=== PATIENT | female | born 1965 | race Asian ===

== ENCOUNTER → 2021-02-27 14:49 | Outpatient (BNVA) | payer BC, OTHER, SELFPAY | PROVIDERS: Visit Provider Nurse Practitioner Family ==

== ENCOUNTER → 2021-06-12 13:53 | Outpatient (BNVA) | payer BC, OTHER, SELFPAY | PROVIDERS: Visit Provider Nurse Practitioner Family | DX: Z13.89 Encounter for screening for other disorder (principal) ==

== ENCOUNTER → 2022-03-05 13:56 | Outpatient (BNVA) | payer BC, OTHER, SELFPAY | PROVIDERS: Visit Provider Nurse Practitioner Family | DX: Z13.89 Encounter for screening for other disorder (principal) ==

== ENCOUNTER → 2022-04-24 15:26 | Outpatient (BNVA) | payer BC, SELFPAY | PROVIDERS: Visit Provider Nurse Practitioner Family | DX: Z13.89 Encounter for screening for other disorder (principal) ==

== ENCOUNTER → 2022-08-21 09:33 | Outpatient (BNVA) | payer BC, SELFPAY | PROVIDERS: Visit Provider Nurse Practitioner Family ==

== ENCOUNTER 2022-09-10 11:35 | Outpatient (AMB) | payer BC, SELFPAY ==
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
== END 2022-09-10 12:28 | disposition home or self-care (01) ==
PROVIDERS: Visit Provider Nurse Practitioner Family
DX: R68.89 Other general symptoms and signs (principal); F32.A Depression, unspecified; G43.009 Migraine without aura, not intractable, without status migrainosus; F07.81 Postconcussional syndrome; R40.0 Somnolence
CPT/HCPCS: 99214

== ENCOUNTER → 2022-09-10 11:35 | Outpatient (BNVA) | payer BC, SELFPAY | PROVIDERS: Visit Provider Nurse Practitioner Family | DX: R41.89 Other symptoms and signs involving cognitive functions and awareness (principal); R40.0 Somnolence; R68.89 Other general symptoms and signs; G47.19 Other hypersomnia ==

== ENCOUNTER → 2022-11-23 13:13 | Outpatient (REF) | payer BC, SELFPAY | LOC: HO.SL 13:13 | PROVIDERS: Visit Provider Nurse Practitioner Family | DX: R41.89 Other symptoms and signs involving cognitive functions and awareness (principal); G47.19 Other hypersomnia; R40.0 Somnolence; R68.89 Other general symptoms and signs; R06.83 Snoring | CPT/HCPCS: 95806 ==

== ENCOUNTER → 2022-11-23 13:38 | Outpatient (BNV) | payer BC, SELFPAY | PROVIDERS: Visit Provider Psychiatry & Neurology Neurology | DX: R06.83 Snoring (principal) | CPT/HCPCS: 95806 ==

== ENCOUNTER 2023-02-12 14:12 | Outpatient (AMB) | payer MEDICARE, BC, SELFPAY ==
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
[2023-02-12 14:22] VITALS: BP 110/76; PULSE 76; RESP 16; O2SAT 95; BMI 26.7
== END 2023-02-12 14:52 | disposition home or self-care (01) ==
LOC: HO.HSMS 14:12
PROVIDERS: Visit Provider Nurse Practitioner Family
DX: R68.89 Other general symptoms and signs (principal); F32.A Depression, unspecified; G43.009 Migraine without aura, not intractable, without status migrainosus; F07.81 Postconcussional syndrome; R40.0 Somnolence
CPT/HCPCS: 99214

== ENCOUNTER → 2023-02-12 14:12 | Outpatient (BNVA) | payer BC, SELFPAY | PROVIDERS: Visit Provider Nurse Practitioner Family | DX: R41.89 Other symptoms and signs involving cognitive functions and awareness (principal); R40.0 Somnolence; R68.89 Other general symptoms and signs; G47.19 Other hypersomnia ==

== ENCOUNTER 2023-07-26 16:01 | Outpatient (AMB) | payer MEDICARE, BC, SELFPAY ==
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
== END 2023-07-28 13:58 | disposition home or self-care (01) ==
LOC: HO.HSMS 16:01
PROVIDERS: Visit Provider Nurse Practitioner Family
DX: F39 Unspecified mood [affective] disorder (principal); F07.81 Postconcussional syndrome; G44.309 Post-traumatic headache, unspecified, not intractable; R41.89 Other symptoms and signs involving cognitive functions and awareness; G47.19 Other hypersomnia
CPT/HCPCS: 99214

== ENCOUNTER → 2023-07-26 16:01 | Outpatient (BNVA) | payer MEDICARE, BC, SELFPAY | PROVIDERS: Visit Provider Nurse Practitioner Family ==

== ENCOUNTER 2024-02-08 14:07 | Outpatient (AMB) | payer MEDICARE, BC, SELFPAY ==
[2024-02-08 14:49] VITALS: BP 104/70; PULSE 94; O2SAT 96; BMI 24.1
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
== END 2024-02-08 15:32 | disposition home or self-care (01) ==
PROVIDERS: Visit Provider Nurse Practitioner Family
DX: F39 Unspecified mood [affective] disorder (principal); F07.81 Postconcussional syndrome; G44.309 Post-traumatic headache, unspecified, not intractable; G47.19 Other hypersomnia; R41.89 Other symptoms and signs involving cognitive functions and awareness
CPT/HCPCS: 99214

== ENCOUNTER → 2024-02-08 14:07 | Outpatient (BNVA) | payer MEDICARE, BC, SELFPAY | PROVIDERS: Visit Provider Nurse Practitioner Family | DX: F07.81 Postconcussional syndrome (principal); R41.89 Other symptoms and signs involving cognitive functions and awareness; F39 Unspecified mood [affective] disorder; G47.19 Other hypersomnia; G43.009 Migraine without aura, not intractable, without status migrainosus | CPT/HCPCS: 99212 ==

== ENCOUNTER 2024-08-09 14:28 | Outpatient (AMB) | payer MEDICARE, BC, SELFPAY ==
[2024-08-09 14:31] VITALS: BP 96/70; PULSE 73; O2SAT 97; BMI 25.4
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
--- OUTSIDE RECORDS SUMMARY | 2024-08-09 16:39 | XMS_ITS | Data Portability ---
Author Organization [place] - Judah mcgrath MD PA, [employer] Address [address] [place] [address] Care Team Providers Care Contractor Field Hauling Name Role Phone [facility] Ophthalmologis t ENRIQUETA RAI Analyst [employer] KIERRA FERRARO Neurologist NICOLAS MALDONADO Pipe Processor Assessment Encounter Date Assessment Date Assessment LastModified by Organization Details LastModified Time 04/12/2023 04/12/2023 Exam is unremarkable. Vitals are stable. - Counseled to reach and stay at a healthy weight by limiting dietary intake of fat (especially saturated fat) and cholesterol (limit fat intake to 30% of total calories), eating a variety of foods, including plenty of fruits, vegetables, and grain containing fiber, and balancing caloric intake with energy expended. These will lower risk for many problems, such as obesity, diabetes, heart disease, and high blood pressure. To get at least 30 minutes of exercise on most days of the week. -Counseled to perform a breast self-exam monthly. If there are changes such as any inconsistency from month to month, especially noting knots or lumps, changes in skin appearance, nipple retraction or discharge, advised to our call office immediately. -Counseled to check all the skin once a month for skin growths or other changes, such as a change in the size, shape or color of a mole or other skin growth such as a birthmark. Advised to look for a mole that bleeds, a fast-growing mole, a scaly or crusted growth on the skin or a sore that will not heal. To always wear sunscreen on exposed skin. If any concerns or change, advised to call our office immediately. -Refer to Dermatology for skin cancer screening -Refer to Ophthalmology for eye conditions screening -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 [employer]st [employer] in [facility]. for pelvic and clinical breast examinations and screening pap smear test. Pap was completed in Feb of this year and normal. -Was seen by 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 Installer for screening colonoscopy in 2015, all was clean. - Order fecal occult blood test- to be collected at home. -Mammogram done Nov of last year, all normal as well. Bone density is due this year in [facility]. she reports. Labs reviewed: TC *221, HDL 64, Trigs 96, LDL *137. Glu *100,BUN 18, CR 0.74, K 4.5, Na 140, SONAL 9.3, AST 22, ALT 23. HbA1c 5.4, TSH 1.70. WBC 3.9, HGB 13.9, HCT 41.9, Plt 349. UA showed 1+ leukocyte esterase, 10-20 squamous epithelial cells and few bacteria. Appears to have been contaminated. SHe has no urinary symptoms. LDL is up because she is eating a lot she reports. Will get back to diet and exercise. She gets Eczema from time to time on hands. Will offer Triamcinolone cream Will offer new steroid/albuterol rescue inhaler for her asthma. (AIRSUPRA) [email or web address] Not available 04/12/2023 12:16:36 07/26/2024 07/26/2024 Exam is unremarkable. Vitals are stable. - Counseled to reach and stay at a healthy weight by limiting dietary intake of fat (especially saturated fat) and cholesterol (limit fat intake to 30% of total calories), eating a variety of foods, including plenty of fruits, vegetables, and grain containing fiber, and balancing caloric intake with energy expended. These will lower risk for many problems, such as obesity, diabetes, heart disease, and high blood pressure. To get at least 30 minutes of exercise on most days of the week. -Counseled to perform a breast self-exam monthly. If there are changes such as any inconsistency from month to month, especially noting knots or lumps, changes in skin appearance, nipple retraction or discharge, advised to our call office immediately. -Counseled to check all the skin once a month for skin growths or other changes, such as a change in the size, shape or color of a mole or other skin growth such as a birthmark. Advised to look for a mole that bleeds, a fast-growing mole, a scaly or crusted growth on the skin or a sore that will not heal. To always wear sunscreen on exposed skin. If any concerns or change, advised to call our office immediately. -REFER TO Dermatology for skin cancer screening. -FOLLOWS WITH Ophthalmology for eye conditions screening. She reports following with [facility]. -FOLLOWS WITH [employer] for pelvic and clinical breast examinations and screening pap smear test. She reports following with Dr. RAI. Pap was done in Feb she reports and normal. -Goes back TO 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 Installer for screening colonoscopy neck year. -Mammogram completed in Feb all was normal. Bone density due next year in Feb. Labs reviewed: TC 222* FROM 221, HDL 63, Trigs 120, LDL 136* FROM 137 ALT 45* FROM 23, OTHERWISE CMP WNL WBC 3.5* FROM 3.9, OTHERWISE CBC WNL Vitamin B12 394, Vit D 32 APOLIPO B 99* LIPOPROTEIN (A) 11 UA showed CLOUDY, FEW BACTERIA. CARDIAC IQ PENDING ALT just a bit high. She recently started having some red wine with dinner. WIll monitor closely. If any higher then will obtain US of liver. Diet and exercise discussed in length. Repeat labs in 6months. [email or web address] Not available 07/26/2024 14:11:43 Plan of Treatment Reminders Order Date Submit Date Provider Last Modified By Organization Details Last Modified Time Details Appointments None recorded . Lab fecal occult blood, stool 2023 024 [facility], [address], [address], [place], [address], 4 12:17:55 Referral dermatol ogist referral 2024 025 nadia Jaquez MD, [address], [address], [place], [address], 5 13:30:36 ophthalm ologist referral 2023 024 [email or web address] Nitin Martinez MD, [address], [address], [place], [address], 4 12:16:50 dermatol ogist referral 2023 024 [facility], [address], [address], [place], [address], 4 05:01:55 Procedures None recorded . Surgeries None recorded . Imaging None recorded . Medication Orders Airsupra 90 mcg-80 mcg/actu ation HFA aerosol inhaler 2023 024 [id number], [address] [place], [address], 5 14:10:06 triamcin olone acetonid e 0.1 % topical cream 2023 024 [id number], [address] [place], [address], 5 14:10:00 Patient TargetsNo targets recorded. Patient InstructionsNo instructions recorded. Reason for Referral Pipe Processor Referral for S creening for malignant neoplasm of skin Referring Physician: Judah Acuna, Internal Medicine, Encounter Date: 11/11/2021 Pipe Processor Referral for S creening for malignant neoplasm of skin Referring Physician: Judah Acuna, Internal Medicine, Encounter Date: 04/12/2023 Gasket Supervisor Referral for Eye disorder screening Referring Physician: Judah Acuna, Internal Medicine, Encounter Date: 04/12/2023 Pipe Processor Referral for E ruption Referring Physician: Judah Acuna, Internal Medicine, Encounter Date: 07/26/2024 Results Created Date Observation Date Name Description Value Unit Range Abnormal Flag Note LastModifiedBy Organization Detail LastModifiedTime 12/23/19 22 12/23/2021 LIPID PANEL WITH REFLE X TO DIREC T LDL cholesterol, total 161 mg/dL <200 normal Not Available [facility] [place] [facility] [address], [place], [address], 12/23/2021 00:25:42 12/23/19 22 12/23/2021 LIPID PANEL WITH REFLE X TO DIREC T LDL HDL cholesterol 52 mg/dL > or = 50 normal Not Available [facility] [place] [facility] [address], [place], [address], 12/23/2021 00:25:42 12/23/19 22 12/23/2021 LIPID PANEL WITH REFLE X TO DIREC T LDL triglyceride s 61 mg/dL <150 normal Not Available [facility] [place] [facility] [address], [place], [address], 12/23/2021 00:25:42 12/23/19 22 12/23/2021 LIPID PANEL WITH REFLE X TO DIREC T LDL LDL-choleste rol 94 mg/dL _(sonal c) normal Refer ence range : <100 Sukhwinder able range <100 mg/dL for prima ry preve ntion ; <70 mg/dL for patie nts with CHD or diabe tic patie nts with > or = 2 CHD risk facto rs. LDL-C is now calcu lated using the Bita n-Hop kins calcu latio n, which is a valid ated novel metho d provi ding joanne r accur acy than the Fried kendal equat ion in the estim ation of LDL-C . Bita reed SS et al. CONNIE. 2013; 310(1 9): 2061- 2068 (http ://ed ucati on.Qu Kaylyn hernandezos tics. com/f aq/FA Q164) Not Available [facility] [place] [facility] [address], [place], [address], 12/23/2021 00:25:42 12/23/19 22 12/23/2021 LIPID PANEL WITH REFLE X TO DIREC T LDL chol/HDLC ratio 3.1 (calc ) <5.0 normal Not Available [facility] [place] [facility] [address], [place], [address], 12/23/2021 00:25:42 12/23/19 22 12/23/2021 LIPID PANEL WITH REFLE X TO DIREC T LDL non HDL cholesterol 109 mg/dL _(sonal c) <130 normal For patie nts with diabe dolores plus 1 major ASCVD risk facto r, treat ing to a non-H DL-C goal of <100 mg/dL (LDL- C of <70 mg/dL ) is consi dered a thera peuti c optio n. Not Available [facility] [address], [place], [address], 12/23/2021 00:25:42 12/23/19 22 12/23/2021 COMPR EHENS KRISHNA METAB OLIC PANEL glucose 102 mg/dL 65-99 high Fasti ng refer ence inter fabiano For someo ne witho ut known diabe dolores, a gluco se value betwe en 100 and 125 mg/dL is consi stent with predi abete s and shoul d be confi rmed with a follo w-up test. Not Available [facility] [address], [place], [address], 12/23/2021 00:25:42 12/23/19 22 12/23/2021 COMPR EHENS KRISHNA METAB OLIC PANEL urea nitrogen (BUN) 15 mg/dL 7-25 normal Not Available [facility] [address], [place], [address], 12/23/2021 00:25:42 12/23/19 22 12/23/2021 COMPR EHENS KRISHNA METAB OLIC PANEL creatinine 0.84 mg/dL 0.50-1 .03 normal Not Available [facility] [address], [place], [address], 12/23/2021 00:25:42 12/23/19 22 12/23/2021 COMPR EHENS KRISHNA METAB OLIC PANEL eGFR 82 mL/mi n/1.7 3m2 > or = 60 normal The eGFR is based on the CKD-E PI 2020 equat ion. To calcu late the new eGFR from a previ ous Creat inine or Cysta juan C resul t, go to https ://allison dwyer.yue rich/wojciech burns s/ kdoqi /gfr% 5Fcal culat or Not Available [facility] [place] [facility] [address], [place], [address], 12/23/2021 00:25:42 12/23/19 22 12/23/2021 COMPR EHENS KRISHNA METAB OLIC PANEL BUN/creatini ne ratio NOT APPLIC ABLE (calc ) 6-22 Not Available [facility] [address], [place], [address], 12/23/2021 00:25:42 12/23/19 22 12/23/2021 COMPR EHENS KRISHNA METAB OLIC PANEL sodium 139 mmol/ L 135-14 6 normal Not Available [facility] [address], [place], [address], 12/23/2021 00:25:42 12/23/19 22 12/23/2021 COMPR EHENS KRISHNA METAB OLIC PANEL potassium 4.5 mmol/ L 3.5-5. 3 normal Not Available [facility] [address], [place], [address], 12/23/2021 00:25:42 12/23/19 22 12/23/2021 COMPR EHENS KRISHNA METAB OLIC PANEL chloride 106 mmol/ L 98-110 normal Not Available [facility] [address], [place], [address], 12/23/2021 00:25:42 12/23/19 22 12/23/2021 COMPR EHENS KRISHNA METAB OLIC PANEL carbon dioxide 26 mmol/ L 20-32 normal Not Available [facility] [address], [place], [address], 12/23/2021 00:25:42 12/23/19 22 12/23/2021 COMPR EHENS KRISHNA METAB OLIC PANEL calcium 9.1 mg/dL 8.6-10 .4 normal Not Available [facility] [address], [place], [address], 12/23/2021 00:25:42 12/23/19 22 12/23/2021 COMPR EHENS KRISHNA METAB OLIC PANEL protein, total 6.6 g/dL 6.1-8. 1 normal Not Available [facility] [address], [place], [address], 12/23/2021 00:25:42 12/23/19 22 12/23/2021 COMPR EHENS KRISHNA METAB OLIC PANEL albumin 4.0 g/dL 3.6-5. 1 normal Not Available [facility] [address], [place], [address], 12/23/2021 00:25:42 12/23/19 22 12/23/2021 COMPR EHENS KRISHNA METAB OLIC PANEL globulin 2.6 g/dL_ (calc ) 1.9-3. 7 normal Not Available [facility] [address], [place], [address], 12/23/2021 00:25:42 12/23/19 22 12/23/2021 COMPR EHENS KRISHNA METAB OLIC PANEL albumin/glob ulin ratio 1.5 (calc ) 1.0-2. 5 normal Not Available [facility] [address], [place], [address], 12/23/2021 00:25:42 12/23/19 22 12/23/2021 COMPR EHENS KRISHNA METAB OLIC PANEL bilirubin, total 0.4 mg/dL 0.2-1. 2 normal Not Available [facility] [address], [place], [address], 12/23/2021 00:25:42 12/23/19 22 12/23/2021 COMPR EHENS KRISHNA METAB OLIC PANEL alkaline phosphatase 47 U/L 37-153 normal Not Available [facility] [place] [facility] [address], [place], [address], 12/23/2021 00:25:42 12/23/19 22 12/23/2021 COMPR EHENS KRISHNA METAB OLIC PANEL AST 16 U/L 10-35 normal Not Available [facility] [place] [facility] [address], [place], [address], 12/23/2021 00:25:42 12/23/19 22 12/23/2021 COMPR EHENS KRISHNA METAB OLIC PANEL ALT 10 U/L 6-29 normal Not Available [facility] [place] [facility] [address], [place], [address], 12/23/2021 00:25:42 12/23/19 22 12/23/2021 HEMOG LOBIN A1C hemoglobin A1C 5.1 %_of_ total _HGB <5.7 normal For the purpo se of abraham marilin for the prese nce of diabe dolores: <5.7% Consi stent with the absen ce of diabe dolores 5.7-6 .4% Consi stent with incre ased risk for diabe dolores (pred iabet es) > or =6.5% Consi stent with diabe dolores This assay resul t is consi stent with a decre ased risk of diabe dolores. Curre ntly, no conse nsus exist s regjavi fitzgerald use of hemog lobin A1c for diagn osis of diabe dolores in child carmelita. Accor ding to Ameri can Diabe dolores Assoc iatio n (ADA) guide lines , hemog lobin A1c <7.0% repre sents optim al contr ol in non-p regna nt diabe tic patie nts. Diffe rent metri cs may apply to speci fic patie nt popul ation s. Stand ards of Medic al Care in Diabe dolores(A DA). Not Available [facility] [place] [facility] [address], [place], [address], 12/23/2021 02:05:14 12/23/1912/23/2021 TSH W/REF JOSÉ [address] TO FT4 TSH w/reflex to FT4 2.14 mIU/L 0.40-4 .50 normal Not Available [facility] [place] [facility] [address], [place], [address], 12/23/2021 00:57:34 12/23/1912/23/2021 CBC (INCL UDES DIFF/ PLT) white blood cell count 3.9 thous and/u L 3.8-10 .8 normal Not Available [facility] [place] [facility] [address], [place], [address], 12/23/2021 00:25:44 12/23/19 22 12/23/2021 CBC (INCL UDES DIFF/ PLT) red blood cell count 4.00 nuvia on/uL 3.80-5 .10 normal Not Available [facility] [place] [facility] [address], [place], [address], 12/23/2021 00:25:44 12/23/19 22 12/23/2021 CBC (INCL UDES DIFF/ PLT) hemoglobin 12.9 g/dL 11.7-1 5.5 normal Not Available [facility] [place] [facility] [address], [place], [address], 12/23/2021 00:25:44 12/23/19 22 12/23/2021 CBC (INCL UDES DIFF/ PLT) hematocrit 37.7 % 35.0-4 5.0 normal Not Available [facility] [place] [facility] [address], [place], [address], 12/23/2021 00:25:44 12/23/19 22 12/23/2021 CBC (INCL UDES DIFF/ PLT) MCV 94.3 fL 80.0-1 00.0 normal Not Available [facility] [address], [place], [address], 12/23/2021 00:25:44 12/23/19 22 12/23/2021 CBC (INCL UDES DIFF/ PLT) MCH 32.3 pg 27.0-3 3.0 normal Not Available [facility] [address], [place], [address], 12/23/2021 00:25:44 12/23/19 22 12/23/2021 CBC (INCL UDES DIFF/ PLT) MCHC 34.2 g/dL 32.0-3 6.0 normal Not Available [facility] [address], [place], [address], 12/23/2021 00:25:44 12/23/19 22 12/23/2021 CBC (INCL UDES DIFF/ PLT) RDW 12.4 % 11.0-1 5.0 normal Not Available [facility] [address], [place], [address], 12/23/2021 00:25:44 12/23/19 22 12/23/2021 CBC (INCL UDES DIFF/ PLT) platelet count 349 thous and/u L 140-40 0 normal Not Available [facility] [address], [place], [address], 12/23/2021 00:25:44 12/23/19 22 12/23/2021 CBC (INCL UDES DIFF/ PLT) MPV 8.9 fL 7.5-12 .5 normal Not Available [facility] [address], [place], [address], 12/23/2021 00:25:44 12/23/19 22 12/23/2021 CBC (INCL UDES DIFF/ PLT) absolute neutrophils 2126 cells /uL 1500-7 800 normal Not Available [facility] [address], [place], [address], 12/23/2021 00:25:44 12/23/19 22 12/23/2021 CBC (INCL UDES DIFF/ PLT) absolute lymphocytes 1346 cells /uL 850-39 00 normal Not Available [facility] [address], [place], [address], 12/23/2021 00:25:44 12/23/19 22 12/23/2021 CBC (INCL UDES DIFF/ PLT) absolute monocytes 281 cells /uL 200-95 0 normal Not Available [facility] [address], [place], [address], 12/23/2021 00:25:44 12/23/19 22 12/23/2021 CBC (INCL UDES DIFF/ PLT) absolute eosinophils 109 cells /uL 15-500 normal Not Available [facility] [address], [place], [address], 12/23/2021 00:25:44 12/23/19 22 12/23/2021 CBC (INCL UDES DIFF/ PLT) absolute basophils 39 cells /uL 0-200 normal Not Available [facility] [address], [place], [address], 12/23/2021 00:25:44 12/23/19 22 12/23/2021 CBC (INCL UDES DIFF/ PLT) neutrophils 54.5 % normal Not Available [facility] [address], [place], [address], 12/23/2021 00:25:44 12/23/19 22 12/23/2021 CBC (INCL UDES DIFF/ PLT) lymphocytes 34.5 % normal Not Available [facility] [address], [place], [address], 12/23/2021 00:25:44 12/23/19 22 12/23/2021 CBC (INCL UDES DIFF/ PLT) monocytes 7.2 % normal Not Available [facility] [address], [place], [address], 12/23/2021 00:25:44 12/23/19 22 12/23/2021 CBC (INCL UDES DIFF/ PLT) eosinophils 2.8 % normal Not Available [facility] [address], [place], [address], 12/23/2021 00:25:44 12/23/19 22 12/23/2021 CBC (INCL UDES DIFF/ PLT) basophils 1.0 % normal Not Available [facility] [address], [place], [address], 12/23/2021 00:25:44 12/23/19 22 12/23/2021 URINA LYSIS , COMPL ETE W/REF JOSÉ MANUEL TO CULTU RE color YELLOW yellow normal Not Available [facility] [address], [place], [address], 12/23/2021 00:25:44 12/23/19 22 12/23/2021 URINA LYSIS , COMPL ETE W/REF JOSÉ [address] TO CULTU RE appearance CLEAR clear normal Not Available [facility] [address], [place], [address], 12/23/2021 00:25:44 12/23/19 22 12/23/2021 URINA LYSIS , COMPL ETE W/REF JOSÉ [address] TO CULTU RE specific gravity 1.011 1.001- 1.035 normal Not Available [facility] [address], [place], [address], 12/23/2021 00:25:44 12/23/19 22 12/23/2021 URINA LYSIS , COMPL ETE W/REF JOSÉ [address] TO CULTU RE pH 7.5 5.0-8. 0 normal Not Available [facility] [place] [facility] [address], [place], [address], 12/23/2021 00:25:44 12/23/19 22 12/23/2021 URINA LYSIS , COMPL ETE W/REF JOSÉ MANUEL TO CULTU RE glucose NEGATI VE negati ve normal Not Available [facility] [place] [facility] [address], [place], [address], 12/23/2021 00:25:44 12/23/19 22 12/23/2021 URINA LYSIS , COMPL ETE W/REF JOSÉ MANUEL TO CULTU RE bilirubin NEGATI VE negati ve normal Not Available [facility] [place] [facility] [address], [place], [address], 12/23/2021 00:25:44 12/23/19 22 12/23/2021 URINA LYSIS , COMPL ETE W/REF JOSÉ [address] TO CULTU RE ketones NEGATI VE negati ve normal Not Available [facility] [place] [facility] [address], [place], [address], 12/23/2021 00:25:44 12/23/19 22 12/23/2021 URINA LYSIS , COMPL ETE W/REF JOSÉ MANUEL TO CULTU RE occult blood NEGATI VE negati ve normal Not Available [facility] [place] [facility] [address], [place], [address], 12/23/2021 00:25:44 12/23/19 22 12/23/2021 URINA LYSIS , COMPL ETE W/REF JOSÉ [address] TO CULTU RE protein NEGATI VE negati ve normal Not Available [facility] [place] [facility] [address], [place], [address], 12/23/2021 00:25:44 12/23/19 22 12/23/2021 URINA LYSIS , COMPL ETE W/REF JOSÉ [address] TO CULTU RE nitrite NEGATI VE negati ve normal Not Available [facility] [place] [facility] [address], [place], [address], 12/23/2021 00:25:44 12/23/19 22 12/23/2021 URINA LYSIS , COMPL ETE W/REF JOSÉ [address] TO CULTU RE leukocyte esterase NEGATI VE negati ve normal Not Available [facility] [place] [facility] [address], [place], [address], 12/23/2021 00:25:44 12/23/19 22 12/23/2021 URINA LYSIS , COMPL ETE W/REF JOSÉ [address] TO CULTU RE WBC NONE SEEN /hpf < or = 5 normal Not Available [facility] [place] [facility] [address], [place], [address], 12/23/2021 00:25:44 12/23/19 22 12/23/2021 URINA LYSIS , COMPL ETE W/REF JOSÉ [address] TO CULTU RE RBC NONE SEEN /hpf < or = 2 normal Not Available [facility] [place] [facility] [address], [place], [address], 12/23/2021 00:25:44 12/23/19 22 12/23/2021 URINA LYSIS , COMPL ETE W/REF JOSÉ MANUEL TO CULTU RE squamous epithelial cells NONE SEEN /hpf < or = 5 normal Not Available [facility] [place] [facility] [address], [place], [address], 12/23/2021 00:25:44 12/23/19 22 12/23/2021 URINA LYSIS , COMPL ETE W/REF JOSÉ MANU[address] TO CULTU RE bacteria NONE SEEN /hpf none seen normal Not Available [facility] [place] [facility] [address], [place], [address], 12/23/2021 00:25:44 12/23/19 22 12/23/2021 URINA LYSIS , COMPL ETE W/REF JOSÉ MANUEL TO CULTU RE hyaline cast NONE SEEN /lpf none seen normal Not Available [facility] [address], [place], [address], 12/23/2021 00:25:44 12/23/1912/23/2021 URINA LYSIS , COMPL ETE W/REF JOSÉ MANUEL TO CULTU RE note This urine was francesco zed for the prese nce of WBC, RBC, bacte katie, casts , and other forme d eleme nts. Only those eleme nts seen were repor lazaro. Not Available [facility] [address], [place], [address], 12/23/2021 00:25:44 12/23/1912/23/2021 REFLE XIVE URINE CULTU RE reflexive urine culture NO CULTU RE INDIC ATED Not Available [facility] [address], [place], [address], 12/23/2021 00:25:44 04/05/19 24 04/06/2023 LIPID PANEL WITH REFLE X TO DIREC T LDL cholesterol, total 221 mg/dL <200 high Not Available [facility] [address], [place], [address], 04/06/2023 00:35:14 04/05/19 24 04/06/2023 LIPID PANEL WITH REFLE X TO DIREC T LDL HDL cholesterol 64 mg/dL > or = 50 normal Not Available [facility] [address], [place], [address], 04/06/2023 00:35:14 04/05/19 24 04/06/2023 LIPID PANEL WITH REFLE X TO DIREC T LDL triglyceride s 96 mg/dL <150 normal Not Available [facility] [place] [facility] [address], [place], [address], 04/06/2023 00:35:14 04/05/19 24 04/06/2023 LIPID PANEL WITH REFLE X TO DIREC T LDL LDL-choleste rol 137 mg/dL _(sonal c) high Refer ence range : <100 Sukhwinder able range <100 mg/dL for prima ry preve ntion ; <70 mg/dL for patie nts with CHD or diabe tic patie nts with > or = 2 CHD risk facto rs. LDL-C is now calcu lated using the Bita n-Hop kins calcu glenn n, which is a valid ated novel metho d provi ding joanne r accur acy than the Fried kendal equat ion in the estim ation of LDL-C . Bita n SS et al. CONNIE. 2013; 310(1 9): 2061- 2068 (http ://ed ucati on.Qu [employer]. com/f aq/FA Q164) Not Available [facility] [place] [facility] [address], [place], [address], 04/06/2023 00:35:14 04/05/19 24 04/06/2023 LIPID PANEL WITH REFLE X TO DIREC T LDL chol/HDLC ratio 3.5 (calc ) <5.0 normal Not Available [facility] [place] [facility] [address], [place], [address], 04/06/2023 00:35:14 04/05/19 24 04/06/2023 LIPID PANEL WITH REFLE X TO DIREC T LDL non HDL cholesterol 157 mg/dL _(sonal c) <130 high For patie nts with diabe dolores plus 1 major ASCVD risk facto r, treat ing to a non-H DL-C goal of <100 mg/dL (LDL- C of <70 mg/dL ) is consi dered a thera peuti c optio n. Not Available [facility] [place] [facility] [address], [place], [address], 04/06/2023 00:35:14 04/05/19 24 04/06/2023 COMPR EHENS KRISHNA METAB OLIC PANEL glucose 100 mg/dL 65-99 high Fasti ng refer ence inter fabiano For someo ne witho ut known diabe dolores, a gluco se value betwe en 100 and 125 mg/dL is consi stent with predi abete s and shoul d be confi rmed with a follo w-up test. Not Available [facility] [place] [facility] [address], [place], [address], 04/06/2023 00:35:15 04/05/19 24 04/06/2023 COMPR EHENS KRISHNA METAB OLIC PANEL urea nitrogen (BUN) 18 mg/dL 7-25 normal Not Available [facility] [place] [facility] [address], [place], [address], 04/06/2023 00:35:15 04/05/19 24 04/06/2023 COMPR EHENS KRISHNA METAB OLIC PANEL creatinine 0.74 mg/dL 0.50-1 .03 normal Not Available [facility] [place] [facility] [address], [place], [address], 04/06/2023 00:35:15 04/05/19 24 04/06/2023 COMPR EHENS KRISHNA METAB OLIC PANEL eGFR 94 mL/mi n/1.7 3m2 > or = 60 normal Not Available [facility] [place] [facility] [address], [place], [address], 04/06/2023 00:35:15 04/05/1904/06/2023 COMPR EHENS KRISHNA METAB OLIC PANEL BUN/creatini ne ratio SEE NOTE: (calc ) 6-22 Not Repor lazaro: BUN and Creat inine are withi n refer ence range . Not Available [facility] [place] [facility] [address], [place], [address], 04/06/2023 00:35:15 04/05/19 24 04/06/2023 COMPR EHENS KRISHNA METAB OLIC PANEL sodium 140 mmol/ L 135-14 6 normal Not Available [facility] [place] [facility] [address], [place], [address], 04/06/2023 00:35:15 04/05/19 24 04/06/2023 COMPR EHENS KRISHNA METAB OLIC PANEL potassium 4.5 mmol/ L 3.5-5. 3 normal Not Available [facility] [address], [place], [address], 04/06/2023 00:35:15 04/05/19 24 04/06/2023 COMPR EHENS KRISHNA METAB OLIC PANEL chloride 108 mmol/ L 98-110 normal Not Available [facility] [address], [place], [address], 04/06/2023 00:35:15 04/05/19 24 04/06/2023 COMPR EHENS KRISHNA METAB OLIC PANEL carbon dioxide 29 mmol/ L 20-32 normal Not Available [facility] [address], [place], [address], 04/06/2023 00:35:15 04/05/19 24 04/06/2023 COMPR EHENS KRISHNA METAB OLIC PANEL calcium 9.3 mg/dL 8.6-10 .4 normal Not Available [facility] [address], [place], [address], 04/06/2023 00:35:15 04/05/19 24 04/06/2023 COMPR EHENS KRISHNA METAB OLIC PANEL protein, total 6.6 g/dL 6.1-8. 1 normal Not Available [facility] [address], [place], [address], 04/06/2023 00:35:15 04/05/19 24 04/06/2023 COMPR EHENS KRISHNA METAB OLIC PANEL albumin 4.1 g/dL 3.6-5. 1 normal Not Available [facility] [address], [place], [address], 04/06/2023 00:35:15 04/05/19 24 04/06/2023 COMPR EHENS KRISHNA METAB OLIC PANEL globulin 2.5 g/dL_ (calc ) 1.9-3. 7 normal Not Available [facility] [address], [place], [address], 04/06/2023 00:35:15 04/05/19 24 04/06/2023 COMPR EHENS KRISHNA METAB OLIC PANEL albumin/glob ulin ratio 1.6 (calc ) 1.0-2. 5 normal Not Available [facility] [address], [place], [address], 04/06/2023 00:35:15 04/05/19 24 04/06/2023 COMPR EHENS KRISHNA METAB OLIC PANEL bilirubin, total 0.3 mg/dL 0.2-1. 2 normal Not Available [facility] [address], [place], [address], 04/06/2023 00:35:15 04/05/19 24 04/06/2023 COMPR EHENS KRISHNA METAB OLIC PANEL alkaline phosphatase 66 U/L 37-153 normal Not Available [facility] [address], [place], [address], 04/06/2023 00:35:15 04/05/19 24 04/06/2023 COMPR EHENS KRISHNA METAB OLIC PANEL AST 22 U/L 10-35 normal Not Available [facility] [address], [place], [address], 04/06/2023 00:35:15 04/05/19 24 04/06/2023 COMPR EHENS KRISHNA METAB OLIC PANEL ALT 23 U/L 6-29 normal Not Available [facility] [address], [place], [address], 04/06/2023 00:35:15 04/05/19 24 04/06/2023 HEMOG LOBIN A1C hemoglobin A1C 5.4 %_of_ total _HGB <5.7 normal For the purpo se of abraham gaston for the prese nce of diabe dolores: <5.7% Consi stent with the absen ce of diabe dolores 5.7-6 .4% Consi stent with incre ased risk for diabe dolores (pred iabet es) > or =6.5% Consi stent with diabe dolores This assay resul t is consi stent with a decre ased risk of diabe dolores. Curre ntly, no conse nsus exist s edwin fitzgerald use of hemog lobin A1c for diagn osis of diabe dolores in child carmelita. Accor ding to Ameri can Diabe dolores Assoc iatio n (ADA) guide lines , hemog lobin A1c <7.0% repre sents optim al contr ol in non-p regna nt diabe tic patie nts. Diffe rent metri cs may apply to speci fic patie nt popul ation s. Stand ards of Medic al Care in Diabe dolores(A DA). HbA1c perfo rmed on Patel platf orm. Effec tive 12/07 a guerita rodgers in test platf orms may have shift ed HbA1c resul ts komal red to histo rical resul ts. Not Available [facility] [place] [facility] [address], [place], [address], 04/06/2023 01:24:18 04/05/19 24 04/06/2023 TSH W/REF JOSÉ MANUEL TO FT4 TSH w/reflex to FT4 1.70 mIU/L 0.40-4 .50 normal Not Available [facility] [place] [facility] [address], [place], [address], 04/06/2023 01:24:18 04/05/19 24 04/05/2023 URINA LYSIS , COMPL ETE W/REF JOSÉ MANUEL TO CULTU RE color YELLOW yellow normal Not Available [facility] [place] [facility] [address], [place], [address], 04/05/2023 23:07:14 04/05/19 24 04/05/2023 URINA LYSIS , COMPL ETE W/REF JOSÉ MANUEL TO CULTU RE appearance CLEAR clear normal Not Available [facility] [place] [facility] [address], [place], [address], 04/05/2023 23:07:14 04/05/19 24 04/05/2023 URINA LYSIS , COMPL ETE W/REF JOSÉ MANUEL TO CULTU RE specific gravity 1.017 1.001- 1.035 normal Not Available [facility] [place] [facility] [address], [place], [address], 04/05/2023 23:07:14 04/05/19 24 04/05/2023 URINA LYSIS , COMPL ETE W/REF JOSÉ MANUEL TO CULTU RE pH 7.0 5.0-8. 0 normal Not Available [facility] [place] [facility] [address], [place], [address], 04/05/2023 23:07:14 04/05/19 24 04/05/2023 URINA LYSIS , COMPL ETE W/REF JOSÉ MANUEL TO CULTU RE glucose NEGATI VE negati ve normal Not Available [facility] [place] [facility] [address], [place], [address], 04/05/2023 23:07:14 04/05/19 24 04/05/2023 URINA LYSIS , COMPL ETE W/REF JOSÉ MANUEL TO CULTU RE bilirubin NEGATI VE negati ve normal Not Available [facility] [place] [facility] [address], [place], [address], 04/05/2023 23:07:14 04/05/19 24 04/05/2023 URINA LYSIS , COMPL ETE W/REF JOSÉ MANUEL TO CULTU RE ketones NEGATI VE negati ve normal Not Available [facility] [place] [facility] [address], [place], [address], 04/05/2023 23:07:14 04/05/19 24 04/05/2023 URINA LYSIS , COMPL ETE W/REF JOSÉ MANUEL TO CULTU RE occult blood NEGATI VE negati ve normal Not Available [facility] [place] [facility] [address], [place], [address], 04/05/2023 23:07:14 04/05/19 24 04/05/2023 URINA LYSIS , COMPL ETE W/REF JOSÉ MANUEL TO CULTU RE protein NEGATI VE negati ve normal Not Available [facility] [place] [facility] [address], [place], [address], 04/05/2023 23:07:14 04/05/19 24 04/05/2023 URINA LYSIS , COMPL ETE W/REF JOSÉ MANUEL TO CULTU RE nitrite NEGATI VE negati ve normal Not Available [facility] [place] [facility] [address], [place], [address], 04/05/2023 23:07:14 04/05/19 24 04/05/2023 URINA LYSIS , COMPL ETE W/REF JOSÉ MANUEL TO CULTU RE leukocyte esterase 1+ negati ve abnormal Not Available [facility] [place] [facility] [address], [place], [address], 04/05/2023 23:07:14 04/05/19 24 04/05/2023 URINA LYSIS , COMPL ETE W/REF JOSÉ MANUEL TO CULTU RE WBC 0-5 /hpf < or = 5 normal Not Available [facility] [place] [facility] [address], [place], [address], 04/05/2023 23:07:14 04/05/19 24 04/05/2023 URINA LYSIS , COMPL ETE W/REF JOSÉ MANUEL TO CULTU RE RBC 0-2 /hpf < or = 2 normal Not Available [facility] [place] [facility] [address], [place], [address], 04/05/2023 23:07:14 04/05/19 24 04/05/2023 URINA LYSIS , COMPL ETE W/REF JOSÉ MANUEL TO CULTU RE squamous epithelial cells 10-20 /hpf < or = 5 abnormal Not Available [facility] [place] [facility] [address], [place], [address], 04/05/2023 23:07:14 04/05/19 24 04/05/2023 URINA LYSIS , COMPL ETE W/REF JOSÉ MANUEL TO CULTU RE bacteria FEW /hpf none seen abnormal Not Available [facility] [place] [facility] [address], [place], [address], 04/05/2023 23:07:14 04/05/19 24 04/05/2023 URINA LYSIS , COMPL ETE W/REF JOSÉ MANUEL TO CULTU RE hyaline cast NONE SEEN /lpf none seen normal Not Available [facility] [place] [facility] [address], [place], [address], 04/05/2023 23:07:14 04/05/19 24 04/05/2023 URINA LYSIS , COMPL ETE W/REF JOSÉ MANUEL TO CULTU RE note This urine was francesco zed for the prese nce of WBC, RBC, bacte katie, casts , and other forme d eleme nts. Only those eleme nts seen were repor lazaro. Not Available [facility] [place] [facility] [address], [place], [address], 04/05/2023 23:07:14 04/05/19 24 04/05/2023 URINA LYSIS , COMPL ETE W/REF JOSÉ MANUEL TO CULTU RE reflexive urine culture CULTU RE INDIC ATED - RESUL TS TO FOLLO W Not Available [facility] [place] [facility] [address], [place], [address], 04/05/2023 23:07:14 04/05/19 24 04/06/2023 CBC (INCL UDES DIFF/ PLT) white blood cell count 3.9 thous and/u L 3.8-10 .8 normal Not Available [facility] [place] [facility] [address], [place], [address], 04/06/2023 01:24:20 04/05/19 24 04/06/2023 CBC (INCL UDES DIFF/ PLT) red blood cell count 4.37 nuvia on/uL 3.80-5 .10 normal Not Available [facility] [address], [place], [address], 04/06/2023 01:24:20 04/05/1904/06/2023 CBC (INCL UDES DIFF/ PLT) hemoglobin 13.9 g/dL 11.7-1 5.5 normal Not Available [facility] [address], [place], [address], 04/06/2023 01:24:20 04/05/1904/06/2023 CBC (INCL UDES DIFF/ PLT) hematocrit 41.9 % 35.0-4 5.0 normal Not Available [facility] [address], [place], [address], 04/06/2023 01:24:20 04/05/1904/06/2023 CBC (INCL UDES DIFF/ PLT) MCV 95.9 fL 80.0-1 00.0 normal Not Available [facility] [address], [place], [address], 04/06/2023 01:24:20 04/05/1904/06/2023 CBC (INCL UDES DIFF/ PLT) MCH 31.8 pg 27.0-3 3.0 normal Not Available [facility] [address], [place], [address], 04/06/2023 01:24:20 04/05/19 24 04/06/2023 CBC (INCL UDES DIFF/ PLT) MCHC 33.2 g/dL 32.0-3 6.0 normal Not Available [facility] [address], [place], [address], 04/06/2023 01:24:20 04/05/19 24 04/06/2023 CBC (INCL UDES DIFF/ PLT) RDW 12.6 % 11.0-1 5.0 normal Not Available [facility] [address], [place], [address], 04/06/2023 01:24:20 04/05/1904/06/2023 CBC (INCL UDES DIFF/ PLT) platelet count 349 thous and/u L 140-40 0 normal Not Available [facility] [address], [place], [address], 04/06/2023 01:24:20 04/05/1904/06/2023 CBC (INCL UDES DIFF/ PLT) MPV 8.9 fL 7.5-12 .5 normal Not Available [facility] [address], [place], [address], 04/06/2023 01:24:20 04/05/1904/06/2023 CBC (INCL UDES DIFF/ PLT) absolute neutrophils 2020 cells /uL 1500-7 800 normal Not Available [facility] [address], [place], [address], 04/06/2023 01:24:20 04/05/19 24 04/06/2023 CBC (INCL UDES DIFF/ PLT) absolute lymphocytes 1299 cells /uL 850-39 00 normal Not Available [facility] [address], [place], [address], 04/06/2023 01:24:20 04/05/1904/06/2023 CBC (INCL UDES DIFF/ PLT) absolute monocytes 332 cells /uL 200-95 0 normal Not Available [facility] [address], [place], [address], 04/06/2023 01:24:20 04/05/19 24 04/06/2023 CBC (INCL UDES DIFF/ PLT) absolute eosinophils 211 cells /uL 15-500 normal Not Available [facility] [place] [facility] [address], [place], [address], 04/06/2023 01:24:20 04/05/19 24 04/06/2023 CBC (INCL UDES DIFF/ PLT) absolute basophils 39 cells /uL 0-200 normal Not Available [facility] [place] [facility] [address], [place], [address], 04/06/2023 01:24:20 04/05/1904/06/2023 CBC (INCL UDES DIFF/ PLT) neutrophils 51.8 % normal Not Available [facility] [place] [facility] [address], [place], [address], 04/06/2023 01:24:20 04/05/19 24 04/06/2023 CBC (INCL UDES DIFF/ PLT) lymphocytes 33.3 % normal Not Available [facility] [address], [place], [address], 04/06/2023 01:24:20 04/05/19 24 04/06/2023 CBC (INCL UDES DIFF/ PLT) monocytes 8.5 % normal Not Available [facility] [place] [facility] [address], [place], [address], 04/06/2023 01:24:20 04/05/1904/06/2023 CBC (INCL UDES DIFF/ PLT) eosinophils 5.4 % normal Not Available [facility] [address], [place], [address], 04/06/2023 01:24:20 04/05/19 24 04/06/2023 CBC (INCL UDES DIFF/ PLT) basophils 1.0 % normal Not Available [facility] [address], [place], [address], 04/06/2023 01:24:20 04/05/19 24 04/05/2023 CULTU RE, URINE , ROUTI NE culture SEE NOTE Not Available [facility] [address], [place], [address], 04/05/2023 23:07:16 04/05/19 24 04/07/2023 CULTU RE, URINE , ROUTI NE culture, urine, routine SEE NOTE CULTU RE, URINE , ROUTI NE Micro Numbe r: [id number] Test Statu s: Final Speci men Sourc e: Urine Speci men Quali ty: Adequ ate Resul t: No Growt h Not Available [facility] [address], [place], [address], 04/07/2023 10:03:27 07/20/19 25 07/20/2024 LIPID PANEL WITH REFLE X TO DIREC T LDL cholesterol, total 222 mg/dL <200 high Not Available [facility] [address], [place], [address], 07/20/2024 01:42:03 07/20/19 25 07/20/2024 LIPID PANEL WITH REFLE X TO DIREC T LDL HDL cholesterol 63 mg/dL > or = 50 normal Not Available [facility] [address], [place], [address], 07/20/2024 01:42:03 07/20/19 25 07/20/2024 LIPID PANEL WITH REFLE X TO DIREC T LDL triglyceride s 120 mg/dL <150 normal Not Available [facility] [address], [place], [address], 07/20/2024 01:42:03 07/20/19 25 07/20/2024 LIPID PANEL WITH REFLE X TO DIREC T LDL LDL-choleste rol 136 mg/dL _(sonal c) high Refer ence range : <100 Sukhwinder able range <100 mg/dL for prima ry preve ntion ; <70 mg/dL for patie nts with CHD or diabe tic patie nts with > or = 2 CHD risk facto rs. LDL-C is now calcu lated using the Bita n-Hop kins calcu coreymatt n, which is a valid ated novel joselo fitzgerald joanne r accur acy than the Fried kendal equat ion in the estim ation of LDL-C . Bita reed SS et al. CONNIE. 2013; 310(1 9): 2061- 2068 (http ://ed ucati on.Qu [employer]. [employer]/f aq/FA Q164) Not Available [facility] [place] [facility] [address], [place], [address], 07/20/2024 01:42:03 07/20/1907/20/2024 LIPID PANEL WITH REFLE X TO DIREC T LDL chol/HDLC ratio 3.5 (calc ) <5.0 normal Not Available [facility] [place] [facility] [address], [place], [address], 07/20/2024 01:42:03 07/20/1907/20/2024 LIPID PANEL WITH REFLE X TO DIREC T LDL non HDL cholesterol 159 mg/dL _(sonal c) <130 high For patie nts with diabe dolores plus 1 major ASCVD risk facto r, treat ing to a non-H DL-C goal of <100 mg/dL (LDL- C of <70 mg/dL ) is consi dered a thera peuti c optio n. Not Available [facility] [place] [facility] [address], [place], [address], 07/20/2024 01:42:03 07/20/1907/22/2024 CARDI O IQ(R) APOLI POPRO TEIN B apolipoprote in B 99 mg/dL <90 high Refer ence Range <90 Risk Categ ory: Optim al <90 Moder ate 90-12 9 High > or = 130 A sukhwinder able treat ment targe t may be <80 mg/dL or lower depen ding on the risk categ ory of the patie nt inclu ding patie nts on lipid lower ing thera pies, patie nts with ASCVD , diabe dolores with >1 risk facto rs, Stage 3 or great er CKD with album inuri a, or heter ozygo us famil ial hyper rosalind stero lemia . ApoB relat krishna risk categ ory cut point s are based on AACE/ STEFF and ACC/A CRUMP recom menda tions (Grun dy SM, et al. 2019. doi:1 0.101 6/j.j acc.2 018.1 1.002 ; Theresa rivers Y, et al. 2020. doi:1 0.415 8/ 2019- 0594) . Not Available [facility] [address], [place], [address], 07/22/2024 10:46:50 07/20/1907/20/2024 COMPR EHENS KRISHNA METAB OLIC PANEL glucose 94 mg/dL 65-99 normal Fasti ng refer ence inter fabiano Not Available [facility] [address], [place], [address], 07/20/2024 01:42:04 07/20/19 25 07/20/2024 COMPR EHENS KRISHNA METAB OLIC PANEL urea nitrogen (BUN) 19 mg/dL 7-25 normal Not Available [facility] [address], [place], [address], 07/20/2024 01:42:04 07/20/19 25 07/20/2024 COMPR EHENS KRISHNA METAB OLIC PANEL creatinine 0.89 mg/dL 0.50-1 .03 normal Not Available [facility] [address], [place], [address], 07/20/2024 01:42:04 07/20/19 25 07/20/2024 COMPR EHENS KRISHNA METAB OLIC PANEL eGFR 75 mL/mi n/1.7 3m2 > or = 60 normal Not Available [facility] [address], [place], [address], 07/20/2024 01:42:04 07/20/1907/20/2024 COMPR EHENS KRISHNA METAB OLIC PANEL BUN/creatini ne ratio SEE NOTE: (calc ) 6-22 Not Repor lazaro: BUN and Creat inine are withi n refer ence range . Not Available [facility] [address], [place], [address], 07/20/2024 01:42:04 07/20/1907/20/2024 COMPR EHENS KRISHNA METAB OLIC PANEL sodium 140 mmol/ L 135-14 6 normal Not Available [facility] [address], [place], [address], 07/20/2024 01:42:04 07/20/1907/20/2024 COMPR EHENS KRISHNA METAB OLIC PANEL potassium 4.4 mmol/ L 3.5-5. 3 normal Not Available [facility] [address], [place], [address], 07/20/2024 01:42:04 07/20/19 25 07/20/2024 COMPR EHENS KRISHNA METAB OLIC PANEL chloride 104 mmol/ L 98-110 normal Not Available [facility] [address], [place], [address], 07/20/2024 01:42:04 07/20/19 25 07/20/2024 COMPR EHENS KRISHNA METAB OLIC PANEL carbon dioxide 33 mmol/ L 20-32 high Not Available [facility] [address], [place], [address], 07/20/2024 01:42:04 07/20/19 25 07/20/2024 COMPR EHENS KRISHNA METAB OLIC PANEL calcium 9.6 mg/dL 8.6-10 .4 normal Not Available [facility] [address], [place], [address], 07/20/2024 01:42:04 07/20/1907/20/2024 COMPR EHENS KRISHNA METAB OLIC PANEL protein, total 7.0 g/dL 6.1-8. 1 normal Not Available [facility] [place] [address], [place], [address], 07/20/2024 01:42:04 07/20/1907/20/2024 COMPR EHENS KRISHNA METAB OLIC PANEL albumin 4.3 g/dL 3.6-5. 1 normal Not Available [facility] [place] [address], [place], [address], 07/20/2024 01:42:04 07/20/19 25 07/20/2024 COMPR EHENS KRISHNA METAB OLIC PANEL globulin 2.7 g/dL_ (calc ) 1.9-3. 7 normal Not Available [facility] [place] [address], [place], [address], 07/20/2024 01:42:04 07/20/19 25 07/20/2024 COMPR EHENS KRISHNA METAB OLIC PANEL albumin/glob ulin ratio 1.6 (calc ) 1.0-2. 5 normal Not Available [facility] [employer] [address], [place], [address], 07/20/2024 01:42:04 07/20/19 25 07/20/2024 COMPR EHENS KRISHNA METAB OLIC PANEL bilirubin, total 0.5 mg/dL 0.2-1. 2 normal Not Available [facility] [place] [address], [place], [address], 07/20/2024 01:42:04 07/20/19 25 07/20/2024 COMPR EHENS KRISHNA METAB OLIC PANEL alkaline phosphatase 107 U/L 37-153 normal Not Available [facility] [employer] [place] [address], [place], [address], 07/20/2024 01:42:04 07/20/1907/20/2024 COMPR EHENS KRISHNA METAB OLIC PANEL AST 32 U/L 10-35 normal Not Available [facility] [place] [facility] [address], [place], [address], 07/20/2024 01:42:04 07/20/1907/20/2024 COMPR EHENS KRISHNA METAB OLIC PANEL ALT 45 U/L 6-29 high Not Available [facility] [place] [facility] [address], [place], [address], 07/20/2024 01:42:04 07/20/1907/20/2024 VITAM IN D,25- OH,TO CORRINE,I A vitamin D,25-oh,tota l,ia 32 NG/mL 30-100 normal Vitam in D Statu s 25-OH Vitam in D: Defic iency : <20 ng/mL Insuf ficie ncy: 20 - 29 ng/mL Optim al: > or = 30 ng/mL For 25-OH Vitam in D testi ng on patie nts on D2-rome pplem entat ion and patie nts for whom quant itati on of D2 and D3 fract ions is requi red, the [facility] e[facility](TM ) 25-OH VIT D, (D2,D 3), LC/MS /MS is recom анна d: order code 81077 (ashley ents >2yrs ). See Note 1 Note 1 For addit ional infor kofi degroot e refer to http: //nuvia [employer] gnost [employer].c om/fa q/FAQ 199 (This link is being provi ded for infor elvis seymour/ goyo strong purpo ses only. ) Not Available [facility] [place] [facility] [address], [place], [address], 07/20/2024 00:41:50 07/20/1907/20/2024 TSH W/REF JOSÉ MANUEL TO FT4 TSH w/reflex to FT4 2.14 mIU/L 0.40-4 .50 normal Not Available [facility] [address], [place], [address], 07/20/2024 00:47:53 07/20/1907/20/2024 CBC (INCL UDES DIFF/ PLT) white blood cell count 3.5 thous and/u L 3.8-10 .8 low Not Available [facility] [address], [place], [address], 07/20/2024 02:15:59 07/20/1907/20/2024 CBC (INCL UDES DIFF/ PLT) red blood cell count 4.47 nuvia on/uL 3.80-5 .10 normal Not Available [facility] [place] [address], [place], [address], 07/20/2024 02:15:59 07/20/19 25 07/20/2024 CBC (INCL UDES DIFF/ PLT) hemoglobin 13.7 g/dL 11.7-1 5.5 normal Not Available [facility] [place] [address], [place], [address], 07/20/2024 02:15:59 07/20/19 25 07/20/2024 CBC (INCL UDES DIFF/ PLT) hematocrit 42.4 % 35.0-4 5.0 normal Not Available [facility] [address], [place], [address], 07/20/2024 02:15:59 07/20/1907/20/2024 CBC (INCL UDES DIFF/ PLT) MCV 94.9 fL 80.0-1 00.0 normal Not Available [facility] [place] [address], [place], [address], 07/20/2024 02:15:59 07/20/1907/20/2024 CBC (INCL UDES DIFF/ PLT) MCH 30.6 pg 27.0-3 3.0 normal Not Available [facility] [address], [place], [address], 07/20/2024 02:15:59 07/20/1907/20/2024 CBC (INCL UDES DIFF/ PLT) MCHC 32.3 g/dL 32.0-3 6.0 normal For adult s, a sligh t decre ase in the calcu lated MCHC value (in the range of 30 to 32 g/dL) is most likel y not clini helena signi rosalba t; dontae er, it shoul d be inter prete d with cauti on in [facility] n with other red cell laura eters and the patie nt's clini sonal condi tion. Not Available [facility] [address], [place], [address], 07/20/2024 02:15:59 07/20/1907/20/2024 CBC (INCL UDES DIFF/ PLT) RDW 12.7 % 11.0-1 5.0 normal Not Available [facility] [address], [place], [address], 07/20/2024 02:15:59 07/20/1907/20/2024 CBC (INCL UDES DIFF/ PLT) platelet count 307 thous and/u L 140-40 0 normal Not Available [facility] [address], [place], [address], 07/20/2024 02:15:59 07/20/1907/20/2024 CBC (INCL UDES DIFF/ PLT) MPV 8.9 fL 7.5-12 .5 normal Not Available [facility] [address], [place], [address], 07/20/2024 02:15:59 07/20/19 25 07/20/2024 CBC (INCL UDES DIFF/ PLT) absolute neutrophils 1544 cells /uL 1500-7 800 normal Not Available [facility] [place] [address], [place], [address], 07/20/2024 02:15:59 07/20/19 25 07/20/2024 CBC (INCL UDES DIFF/ PLT) absolute lymphocytes 1523 cells /uL 850-39 00 normal Not Available [facility] [place] [address], [place], [address], 07/20/2024 02:15:59 07/20/1907/20/2024 CBC (INCL UDES DIFF/ PLT) absolute monocytes 242 cells /uL 200-95 0 normal Not Available [facility] [place] [address], [place], [address], 07/20/2024 02:15:59 07/20/19 25 07/20/2024 CBC (INCL UDES DIFF/ PLT) absolute eosinophils 151 cells /uL 15-500 normal Not Available [facility] [place] [address], [place], [address], 07/20/2024 02:15:59 07/20/1907/20/2024 CBC (INCL UDES DIFF/ PLT) absolute basophils 42 cells /uL 0-200 normal Not Available [facility] [place] [address], [place], [address], 07/20/2024 02:15:59 07/20/1907/20/2024 CBC (INCL UDES DIFF/ PLT) neutrophils 44.1 % normal Not Available [facility] [place] [address], [place], [address], 07/20/2024 02:15:59 07/20/1907/20/2024 CBC (INCL UDES DIFF/ PLT) lymphocytes 43.5 % normal Not Available [facility] [place] [address], [place], [address], 07/20/2024 02:15:59 07/20/1907/20/2024 CBC (INCL UDES DIFF/ PLT) monocytes 6.9 % normal Not Available [facility] [place] [address], [place], [address], 07/20/2024 02:15:59 07/20/19 25 07/20/2024 CBC (INCL UDES DIFF/ PLT) eosinophils 4.3 % normal Not Available [facility] [place] [address], [place], [address], 07/20/2024 02:15:59 07/20/1907/20/2024 CBC (INCL UDES DIFF/ PLT) basophils 1.2 % normal Not Available [facility] [place] [address], [place], [address], 07/20/2024 02:15:59 07/20/19 25 07/20/2024 URINA LYSIS , COMPL ETE W/REF JOSÉ MANUEL TO CULTU RE color DARK YELLOW yellow normal Not Available [facility] [place] [address], [place], [address], 07/20/2024 05:08:55 07/20/19 25 07/20/2024 URINA LYSIS , COMPL ETE W/REF JOSÉ MANUEL TO CULTU RE appearance CLOUDY clear abnormal Not Available [facility] [place] [address], [place], [address], 07/20/2024 05:08:55 07/20/19 25 07/20/2024 URINA LYSIS , COMPL ETE W/REF JOSÉ MANUEL TO CULTU RE specific gravity 1.013 1.001- 1.035 normal Not Available [facility] [place] [address], [place], [address], 07/20/2024 05:08:55 07/20/19 25 07/20/2024 URINA LYSIS , COMPL ETE W/REF JOSÉ MANUEL TO CULTU RE pH 7.5 5.0-8. 0 normal Not Available [facility] [place] [facility] [address], [place], [address], 07/20/2024 05:08:55 07/20/19 25 07/20/2024 URINA LYSIS , COMPL ETE W/REF JOSÉ MANUEL TO CULTU RE glucose NEGATI VE negati ve normal Not Available [facility] [place] [facility] [address], [place], [address], 07/20/2024 05:08:55 07/20/19 25 07/20/2024 URINA LYSIS , COMPL ETE W/REF JOSÉ MANUEL TO CULTU RE bilirubin NEGATI VE negati ve normal Not Available [facility] [place] [address], [place], [address], 07/20/2024 05:08:55 07/20/19 25 07/20/2024 URINA LYSIS , COMPL ETE W/REF JOSÉ MANUEL TO CULTU RE ketones NEGATI VE negati ve normal Not Available [facility] [place] [address], [place], [address], 07/20/2024 05:08:55 07/20/19 25 07/20/2024 URINA LYSIS , COMPL ETE W/REF JOSÉ MANUEL TO CULTU RE occult blood NEGATI VE negati ve normal Not Available [facility] [place] [address], [place], [address], 07/20/2024 05:08:55 07/20/19 25 07/20/2024 URINA LYSIS , COMPL ETE W/REF JOSÉ MANUEL TO CULTU RE protein NEGATI VE negati ve normal Not Available [facility] [place] [address], [place], [address], 07/20/2024 05:08:55 07/20/19 25 07/20/2024 URINA LYSIS , COMPL ETE W/REF JOSÉ MANUEL TO CULTU RE nitrite NEGATI VE negati ve normal Not Available [facility] [place] [facility] [address], [place], [address], 07/20/2024 05:08:55 07/20/19 25 07/20/2024 URINA LYSIS , COMPL ETE W/REF JOSÉ MANUEL TO CULTU RE leukocyte esterase NEGATI VE negati ve normal Not Available [facility] [place] [address], [place], [address], 07/20/2024 05:08:55 07/20/19 25 07/20/2024 URINA LYSIS , COMPL ETE W/REF JOSÉ MANUEL TO CULTU RE WBC NONE SEEN /hpf < or = 5 normal Not Available [facility] [place] [address], [place], [address], 07/20/2024 05:08:55 07/20/19 25 07/20/2024 URINA LYSIS , COMPL ETE W/REF JOSÉ MANUEL TO CULTU RE RBC 0-2 /hpf < or = 2 normal Not Available [facility] [place] [address], [place], [address], 07/20/2024 05:08:55 07/20/19 25 07/20/2024 URINA LYSIS , COMPL ETE W/REF JOSÉ MANUEL TO CULTU RE squamous epithelial cells 0-5 /hpf < or = 5 Not Available [facility] [place] [address], [place], [address], 07/20/2024 05:08:55 07/20/19 25 07/20/2024 URINA LYSIS , COMPL ETE W/REF JOSÉ MANUEL TO CULTU RE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
== END 2024-08-09 15:27 | disposition home or self-care (01) ==
LOC: HO.HSMS 14:29
PROVIDERS: Visit Provider Nurse Practitioner Family
DX: R41.89 Other symptoms and signs involving cognitive functions and awareness (principal); F07.81 Postconcussional syndrome; G44.309 Post-traumatic headache, unspecified, not intractable; G47.19 Other hypersomnia; F39 Unspecified mood [affective] disorder
CPT/HCPCS: 99214

== ENCOUNTER → 2024-08-09 14:28 | Outpatient (BNVA) | payer MEDICARE, BC, SELFPAY | PROVIDERS: Visit Provider Nurse Practitioner Family | DX: F07.81 Postconcussional syndrome (principal); G43.009 Migraine without aura, not intractable, without status migrainosus; R41.89 Other symptoms and signs involving cognitive functions and awareness; G47.19 Other hypersomnia; F39 Unspecified mood [affective] disorder | CPT/HCPCS: 99212 ==

== ENCOUNTER 2024-09-01 14:39 | Outpatient (REF) | payer MEDICARE, BC, SELFPAY ==
--- OUTSIDE RECORDS SUMMARY | 2024-03-09 11:00 | XMS_ITS ---
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 :1965 A ge:58 Y S ex:Female Date:03/09/2024 Address:[address], [id number] Subjective: * Chief Complaints: * 1 . 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 * Medical History: Objective: * Vitals: Assessment: Plan: * Treatment: * Images: Billing Information: * Visit Code: * Procedure Codes: * Electronic signature of Mira Maki MD on 09/01/2024 at 02:42 PM EDT Sign off status: Pending * Appointment Provider: Ramandeep Maki M.D. Date: 0 03/09/2024 Generated for Douglas soriano/Nahed/Ed on: 0 09/01/2024 02:42 PM EDT
--- OUTSIDE RECORDS SUMMARY | 2024-09-01 14:42 | XMS_ITS | Data Portability ---
Author Organization [place] - Judah mcgrath MD PA, [employer] Address [address] [facility] [address] [place] [address] Care Team Providers Care Early Childhood Associate Name Role Phone [facility] Ophthalmologis t ENRIQUETA RAI [facility] KIERRA FERRARO Neurologist NICOLAS MALDONADO Customer Support Advisor Assessment Encounter Date Assessment Date Assessment LastModified [...] Ophthalmology for eye conditions screening -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 [facility] in [facility]. for pelvic and clinical breast examinations and screening pap smear test. Pap was completed in Feb of this year and normal. -Was seen by [facility] for screening colonoscopy in 2015, all was clean. - Order fecal occult blood test- to be collected at home. -Mammogram done Nov of last year, all normal as well. Bone density is due this year in [facility]. she reports. Labs reviewed: TC *221, HDL [...] steroid/albuterol rescue inhaler for her asthma. (AIRSUPRA) [email or web address] Not available 04/12/2023 12:16:36 07/26/2024 07/26/2024 Exam [...] eye conditions screening. She reports following with [facility]. -FOLLOWS WITH [facility] for pelvic and clinical breast examinations and screening pap smear test. She reports following with Dr. RAI. Pap was done in Feb she reports and normal. -Goes back TO [facility] for screening colonoscopy neck year. -Mammogram completed [...] discussed in length. Repeat labs in 6months. [email or web address] Not available 07/26/2024 14:11:43 Plan of Treatment Reminders Order Date Submit Date Provider Last Modified By Organization Details Last Modified Time Details Appointments None recorded . Lab fecal occult blood, stool 2023 024 [facility], [address], [address], [place], [address], 4 12:17:55 Referral dermatol ogist referral 2024 025 ELIEL Jaquez MD, [address], [address], [place], [address], 5 04:02:23 ophthalm ologist referral 2023 024 [email or web address] Nitin Martinez MD, [address], [address], [place], [address], 4 12:16:50 dermatol ogist referral 2023 024 [facility], [address], [address], [place], [address], 4 05:01:55 Procedures None recorded . Surgeries None recorded . Imaging None recorded . Medication Orders Airsupra 90 mcg-80 mcg/actu ation HFA aerosol inhaler 2023 024 [id number], [address] [place], [address], 5 14:10:06 triamcin olone acetonid e 0.1 % topical cream 2023 024 [id number], [address] [place], [address], 5 14:10:00 Patient TargetsNo targets recorded. Patient InstructionsNo instructions recorded. Reason for Referral Customer Support Advisor Referral for S creening for malignant neoplasm of skin Referring Physician: Judah Acuna, Internal Medicine, Encounter Date: 11/11/2021 Customer Support Advisor Referral for S creening for malignant neoplasm of skin Referring Physician: Judah Acuna, Internal Medicine, Encounter Date: 04/12/2023 Wirer Referral for Eye disorder screening Referring Physician: Judah Acuna, Internal Medicine, Encounter Date: 04/12/2023 Customer Support Advisor Referral for E ruption Referring Physician: Judah Acuna, Internal Medicine, Encounter Date: 07/26/2024 Results Created Date Observation Date Name Description Value Unit Range Abnormal Flag Note LastModifiedBy Organization Detail LastModifiedTime 12/23/19 22 12/23/2021 LIPID PANEL WITH REFLE X TO DIREC T LDL cholesterol, total 161 mg/dL <200 normal Not Available [facility] [place] [facility] [address], [place], [address], 12/23/2021 00:25:42 12/23/19 22 12/23/2021 LIPID PANEL WITH REFLE X TO DIREC T LDL HDL cholesterol 52 mg/dL > or = 50 normal Not Available [facility] [place] [facility] [address], [place], [address], 12/23/2021 00:25:42 12/23/19 22 12/23/2021 LIPID PANEL WITH REFLE X TO DIREC T LDL triglyceride s 61 mg/dL <150 normal Not Available [facility] [place] [facility] [address], [place], [address], 12/23/2021 00:25:42 12/23/19 22 12/23/2021 LIPID PANEL [...] 2061- 2068 (http ://ed ucati on.Qu Kaylyn [employer]. com/f aq/FA Q164) Not Available [facility] [place] [facility] [address], [place], [address], 12/23/2021 00:25:42 12/23/19 22 12/23/2021 LIPID PANEL WITH REFLE X TO DIREC T LDL chol/HDLC ratio 3.1 (calc ) <5.0 normal Not Available [facility] [place] [facility] [address], [place], [address], 12/23/2021 00:25:42 12/23/19 22 12/23/2021 LIPID PANEL [...] c optio n. Not Available [facility] [address], [place], [address], 12/23/2021 00:25:42 12/23/19 22 12/23/2021 COMPR EHENS KRISHNA METAB OLIC PANEL glucose 102 mg/dL 65-99 high Fasti ng refer ence inter fabiano For someo ne witho ut known diabe dolores, a gluco se value betwe en 100 and 125 mg/dL is consi stent with predi abete s and shoul d be confi rmed with a follo w-up test. Not Available [facility] [place] [facility] [address], [place], [address], 12/23/2021 00:25:42 12/23/19 22 12/23/2021 COMPR EHENS KRISHNA METAB OLIC PANEL urea nitrogen (BUN) 15 mg/dL 7-25 normal Not Available [facility] [address], [place], [address], 12/23/2021 00:25:42 12/23/19 22 12/23/2021 COMPR EHENS KRISHNA METAB OLIC PANEL creatinine 0.84 mg/dL 0.50-1 .03 normal Not Available [facility] [place] [facility] [address], [place], [address], 12/23/2021 00:25:42 12/23/19 22 12/23/2021 COMPR EHENS KRISHNA METAB OLIC PANEL eGFR 82 mL/mi n/1.7 3m2 > or = 60 normal The eGFR is based on the CKD-E PI 2020 equat ion. To calcu late the new eGFR from a previ ous Creat inine or Cysta juan C resul t, go to https ://allison w.payal cheeky.o hilario/pr eusebia burns s/ kdoqi /gfr% 5Fcal culat or Not Available [facility] [place] [facility] [address], [place], [address], 12/23/2021 00:25:42 12/23/19 22 12/23/2021 COMPR EHENS KRISHNA METAB OLIC PANEL BUN/creatini ne ratio NOT APPLIC ABLE (calc ) 6-22 Not Available [facility] [address], [place], [address], 12/23/2021 00:25:42 12/23/19 22 12/23/2021 COMPR EHENS KRISHNA METAB OLIC PANEL sodium 139 mmol/ L 135-14 6 normal Not Available [facility] [address], [place], [address], 12/23/2021 00:25:42 12/23/19 22 12/23/2021 COMPR EHENS KRISHNA METAB OLIC PANEL potassium 4.5 mmol/ L 3.5-5. 3 normal Not Available [facility] [address], [place], [address], 12/23/2021 00:25:42 12/23/19 22 12/23/2021 COMPR EHENS KRISHNA METAB OLIC PANEL chloride 106 mmol/ L 98-110 normal Not Available [facility] [address], [place], [address], 12/23/2021 00:25:42 12/23/19 22 12/23/2021 COMPR EHENS KRISHNA METAB OLIC PANEL carbon dioxide 26 mmol/ L 20-32 normal Not Available [facility] [address], [place], [address], 12/23/2021 00:25:42 12/23/19 22 12/23/2021 COMPR EHENS KRISHNA METAB OLIC PANEL calcium 9.1 mg/dL 8.6-10 .4 normal Not Available [facility] [address], [place], [address], 12/23/2021 00:25:42 12/23/19 22 12/23/2021 COMPR EHENS KRISHNA METAB OLIC PANEL protein, total 6.6 g/dL 6.1-8. 1 normal Not Available [facility] [address], [place], [address], 12/23/2021 00:25:42 12/23/19 22 12/23/2021 COMPR EHENS KRISHNA METAB OLIC PANEL albumin 4.0 g/dL 3.6-5. 1 normal Not Available [facility] [address], [place], [address], 12/23/2021 00:25:42 12/23/19 22 12/23/2021 COMPR EHENS KRISHNA METAB OLIC PANEL globulin 2.6 g/dL_ (calc ) 1.9-3. 7 normal Not Available [facility] [address], [place], [address], 12/23/2021 00:25:42 12/23/19 22 12/23/2021 COMPR EHENS KRISHNA METAB OLIC PANEL albumin/glob ulin ratio 1.5 (calc ) 1.0-2. 5 normal Not Available [facility] [address], [place], [address], 12/23/2021 00:25:42 12/23/19 22 12/23/2021 COMPR EHENS KRISHNA METAB OLIC PANEL bilirubin, total 0.4 mg/dL 0.2-1. 2 normal Not Available [facility] [address], [place], [address], 12/23/2021 00:25:42 12/23/19 22 12/23/2021 COMPR EHENS KRISHNA METAB OLIC PANEL alkaline phosphatase 47 U/L 37-153 normal Not Available [facility] [place] [facility] [address], [place], [address], 12/23/2021 00:25:42 12/23/19 22 12/23/2021 COMPR EHENS KRISHNA METAB OLIC PANEL AST 16 U/L 10-35 normal Not Available [facility] [place] [facility] [address], [place], [address], 12/23/2021 00:25:42 12/23/19 22 12/23/2021 COMPR EHENS KRISHNA METAB OLIC PANEL ALT 10 U/L 6-29 normal Not Available [facility] [place] [facility] [address], [place], [address], 12/23/2021 00:25:42 12/23/19 22 12/23/2021 HEMOG LOBIN A1C hemoglobin A1C 5.1 %_of_ total _HGB <5.7 normal For the purpo se of abraham alfordg for the prese nce of diabe dolores: [...] fic patie nt popul ation s. Stand [facility] in Diabe dolores(A DA). Not Available [facility] [place] [facility] [address], [place], [address], 12/23/2021 02:05:14 12/23/19 22 12/23/2021 TSH W/REF JOSÉ MANUEL TO FT4 TSH w/reflex to FT4 2.14 mIU/L 0.40-4 .50 normal Not Available [facility] [place] [facility] [address], [place], [address], 12/23/2021 00:57:34 12/23/1912/23/2021 CBC (INCL UDES DIFF/ PLT) white blood cell count 3.9 thous and/u L 3.8-10 .8 normal Not Available [facility] [place] [facility] [address], [place], [address], 12/23/2021 00:25:44 12/23/19 22 12/23/2021 CBC (INCL UDES DIFF/ PLT) red blood cell count 4.00 nuvia on/uL 3.80-5 .10 normal Not Available [facility] [place] [facility] [address], [place], [address], 12/23/2021 00:25:44 12/23/19 22 12/23/2021 CBC (INCL UDES DIFF/ PLT) hemoglobin 12.9 g/dL 11.7-1 5.5 normal Not Available [facility] [place] [facility] [address], [place], [address], 12/23/2021 00:25:44 12/23/19 22 12/23/2021 CBC (INCL UDES DIFF/ PLT) hematocrit 37.7 % 35.0-4 5.0 normal Not Available [facility] [place] [facility] [address], [place], [address], 12/23/2021 00:25:44 10/31/12/23/2021 CBC (INCL UDES DIFF/ PLT) MCV 94.3 fL 80.0-1 00.0 normal Not Available [facility] [address], [place], [address], 12/23/2021 00:25:44 12/23/19 22 12/23/2021 CBC (INCL UDES DIFF/ PLT) MCH 32.3 pg 27.0-3 3.0 normal Not Available [facility] [address], [place], [address], 12/23/2021 00:25:44 12/23/19 22 12/23/2021 CBC (INCL UDES DIFF/ PLT) MCHC 34.2 g/dL 32.0-3 6.0 normal Not Available [facility] [address], [place], [address], 12/23/2021 00:25:44 12/23/19 22 12/23/2021 CBC (INCL UDES DIFF/ PLT) RDW 12.4 % 11.0-1 5.0 normal Not Available [facility] [address], [place], [address], 12/23/2021 00:25:44 12/23/19 22 12/23/2021 CBC (INCL UDES DIFF/ PLT) platelet count 349 thous and/u L 140-40 0 normal Not Available [facility] [address], [place], [address], 12/23/2021 00:25:44 12/23/19 22 12/23/2021 CBC (INCL UDES DIFF/ PLT) MPV 8.9 fL 7.5-12 .5 normal Not Available [facility] [address], [place], [address], 12/23/2021 00:25:44 12/23/19 22 12/23/2021 CBC (INCL UDES DIFF/ PLT) absolute neutrophils 2126 cells /uL 1500-7 800 normal Not Available [facility] [address], [place], [address], 12/23/2021 00:25:44 12/23/19 22 12/23/2021 CBC (INCL UDES DIFF/ PLT) absolute lymphocytes 1346 cells /uL 850-39 00 normal Not Available [facility] [place] [facility] [address], [place], [address], 12/23/2021 00:25:44 12/23/19 22 12/23/2021 CBC (INCL UDES DIFF/ PLT) absolute monocytes 281 cells /uL 200-95 0 normal Not Available [facility] [address], [place], [address], 12/23/2021 00:25:44 12/23/19 22 12/23/2021 CBC (INCL UDES DIFF/ PLT) absolute eosinophils 109 cells /uL 15-500 normal Not Available [facility] [address], [place], [address], 12/23/2021 00:25:44 12/23/19 22 12/23/2021 CBC (INCL UDES DIFF/ PLT) absolute basophils 39 cells /uL 0-200 normal Not Available [facility] [address], [place], [address], 12/23/2021 00:25:44 12/23/19 22 12/23/2021 CBC (INCL UDES DIFF/ PLT) neutrophils 54.5 % normal Not Available [facility] [address], [place], [address], 12/23/2021 00:25:44 12/23/19 22 12/23/2021 CBC (INCL UDES DIFF/ PLT) lymphocytes 34.5 % normal Not Available [facility] [address], [place], [address], 12/23/2021 00:25:44 12/23/19 22 12/23/2021 CBC (INCL UDES DIFF/ PLT) monocytes 7.2 % normal Not Available [facility] [address], [place], [address], 12/23/2021 00:25:44 12/23/19 22 12/23/2021 CBC (INCL UDES DIFF/ PLT) eosinophils 2.8 % normal Not Available [facility] [place] [facility] [address], [place], [address], 12/23/2021 00:25:44 12/23/19 22 12/23/2021 CBC (INCL UDES DIFF/ PLT) basophils 1.0 % normal Not Available [facility] [address], [place], [address], 12/23/2021 00:25:44 12/23/19 22 12/23/2021 URINA LYSIS , COMPL ETE W/REF JOSÉ MANUEL TO CULTU RE color YELLOW yellow normal Not Available [facility] [address], [place], [address], 12/23/2021 00:25:44 12/23/19 22 12/23/2021 URINA LYSIS , COMPL ETE W/REF JOSÉ MANUEL TO CULTU RE appearance CLEAR clear normal Not Available [facility] [address], [place], [address], 12/23/2021 00:25:44 12/23/19 22 12/23/2021 URINA LYSIS , COMPL ETE W/REF JOSÉ MANUEL TO CULTU RE specific gravity 1.011 1.001- 1.035 normal Not Available [facility] [address], [place], [address], 12/23/2021 00:25:44 12/23/19 22 12/23/2021 URINA LYSIS , COMPL ETE W/REF JOSÉ MANUEL TO CULTU RE pH 7.5 5.0-8. 0 normal Not Available [facility] [place] [facility] [address], [place], [address], 12/23/2021 00:25:44 12/23/19 22 12/23/2021 URINA LYSIS , COMPL ETE W/REF JOSÉ MANUEL TO CULTU RE glucose NEGATI VE negati ve normal Not Available [facility] [place] [facility] [address], [place], [address], 12/23/2021 00:25:44 12/23/1912/23/2021 URINA LYSIS , COMPL ETE W/REF JOSÉ MANUEL TO CULTU RE bilirubin NEGATI VE negati ve normal Not Available [facility] [place] [facility] [address], [place], [address], 12/23/2021 00:25:44 12/23/19 22 12/23/2021 URINA LYSIS , COMPL ETE W/REF JOSÉ MANUEL TO CULTU RE ketones NEGATI VE negati ve normal Not Available [facility] [place] [facility] [address], [place], [address], 12/23/2021 00:25:44 12/23/19 22 12/23/2021 URINA LYSIS , COMPL ETE W/REF JOSÉ MANUEL TO CULTU RE occult blood NEGATI VE negati ve normal Not Available [facility] [place] [facility] [address], [place], [address], 12/23/2021 00:25:44 12/23/19 22 12/23/2021 URINA LYSIS , COMPL ETE W/REF JOSÉ MANUEL TO CULTU RE protein NEGATI VE negati ve normal Not Available [facility] [place] [facility] [address], [place], [address], 12/23/2021 00:25:44 12/23/19 22 12/23/2021 URINA LYSIS , COMPL ETE W/REF JOSÉ MANUEL TO CULTU RE nitrite NEGATI VE negati ve normal Not Available [facility] [place] [facility] [address], [place], [address], 12/23/2021 00:25:44 12/23/19 22 12/23/2021 URINA LYSIS , COMPL ETE W/REF JOSÉ MANUEL TO CULTU RE leukocyte esterase NEGATI VE negati ve normal Not Available [facility] [place] [facility] [address], [place], [address], 12/23/2021 00:25:44 12/23/19 22 12/23/2021 URINA LYSIS , COMPL ETE W/REF JOSÉ MANUEL TO CULTU RE WBC NONE SEEN /hpf < or = 5 normal Not Available [facility] [place] [facility] [address], [place], [address], 12/23/2021 00:25:44 12/23/19 22 12/23/2021 URINA LYSIS , COMPL ETE W/REF JOSÉ MANUEL TO CULTU RE RBC NONE SEEN /hpf < or = 2 normal Not Available [facility] [place] [facility] [address], [place], [address], 12/23/2021 00:25:44 12/23/19 22 12/23/2021 URINA LYSIS , COMPL ETE W/REF JOSÉ MANUEL TO CULTU RE squamous epithelial cells NONE SEEN /hpf < or = 5 normal Not Available [facility] [place] [facility] [address], [place], [address], 12/23/2021 00:25:44 12/23/19 22 12/23/2021 URINA LYSIS , COMPL ETE W/REF JOSÉ MANUEL TO CULTU RE bacteria NONE SEEN /hpf none seen normal Not Available [facility] [place] [facility] [address], [place], [address], 12/23/2021 00:25:44 12/23/19 22 12/23/2021 URINA LYSIS , COMPL ETE W/REF JOSÉ MANUEL TO CULTU RE hyaline cast NONE SEEN /lpf none seen normal Not Available [facility] [place] [facility] [address], [place], [address], 12/23/2021 00:25:44 12/23/1912/23/2021 URINA LYSIS , COMPL ETE W/REF JOSÉ MANUEL TO CULTU RE note This urine was francesco zed for the prese nce of WBC, RBC, bacte katie, casts , and other forme d eleme nts. Only those eleme nts seen were repor lazaro. Not Available [facility] [place] [facility] [address], [place], [address], 12/23/2021 00:25:44 12/23/1912/23/2021 REFLE XIVE URINE CULTU RE reflexive urine culture NO CULTU RE INDIC ATED Not Available [facility] [place] [facility] [address], [place], [address], 12/23/2021 00:25:44 04/05/19 24 04/06/2023 LIPID PANEL WITH REFLE X TO DIREC T LDL cholesterol, total 221 mg/dL <200 high Not Available [facility] [place] [facility] [address], [place], [address], 04/06/2023 00:35:14 04/05/19 24 04/06/2023 LIPID PANEL WITH REFLE X TO DIREC T LDL HDL cholesterol 64 mg/dL > or = 50 normal Not Available [facility] [place] [facility] [address], [place], [address], 04/06/2023 00:35:14 04/05/19 24 04/06/2023 LIPID PANEL WITH REFLE X TO DIREC T LDL triglyceride s 96 mg/dL <150 normal Not Available [facility] [place] [facility] [address], [place], [address], 04/06/2023 00:35:14 04/05/19 24 04/06/2023 LIPID PANEL [...] 310(1 9): 2061- 2068 (http ://ed ucati on.monEchelle. Estadeboda/f aq/FA Q164) Not Available [facility] [place] [facility] [address], [place], [address], 04/06/2023 00:35:14 04/05/19 24 04/06/2023 LIPID PANEL WITH REFLE X TO DIREC T LDL chol/HDLC ratio 3.5 (calc ) <5.0 normal Not Available [facility] [place] [facility] [address], [place], [address], 04/06/2023 00:35:14 04/05/19 24 04/06/2023 LIPID PANEL [...] optio n. Not Available [facility] [place] [facility] [address], [place], [address], 04/06/2023 00:35:14 04/05/19 24 04/06/2023 COMPR EHENS KRISHNA METAB OLIC PANEL glucose 100 mg/dL 65-99 high Fasti ng refer ence inter fabiano For someo ne witho ut known diabe dolores, a gluco se value betwe en 100 and 125 mg/dL is consi stent with predi abete s and shoul d be confi rmed with a follo w-up test. Not Available [facility] [place] [facility] [address], [place], [address], 04/06/2023 00:35:15 04/05/19 24 04/06/2023 COMPR EHENS KRISHNA METAB OLIC PANEL urea nitrogen (BUN) 18 mg/dL 7-25 normal Not Available [facility] [place] [facility] [address], [place], [address], 04/06/2023 00:35:15 04/05/19 24 04/06/2023 COMPR EHENS KRISHNA METAB OLIC PANEL creatinine 0.74 mg/dL 0.50-1 .03 normal Not Available [facility] [place] [facility] [address], [place], [address], 04/06/2023 00:35:15 04/05/19 24 04/06/2023 COMPR EHENS KRISHNA METAB OLIC PANEL eGFR 94 mL/mi n/1.7 3m2 > or = 60 normal Not Available [facility] [place] [facility] [address], [place], [address], 04/06/2023 00:35:15 04/05/19 24 04/06/2023 COMPR EHENS KRISHNA METAB OLIC PANEL BUN/creatini ne ratio SEE NOTE: (calc ) 6-22 Not Repor lazaro: BUN and Creat inine are withi n refer ence range . Not Available [facility] [place] [facility] [address], [place], [address], 04/06/2023 00:35:15 04/05/19 24 04/06/2023 COMPR EHENS KRISHNA METAB OLIC PANEL sodium 140 mmol/ L 135-14 6 normal Not Available [facility] [place] [facility] [address], [place], [address], 04/06/2023 00:35:15 04/05/19 24 04/06/2023 COMPR EHENS KRISHNA METAB OLIC PANEL potassium 4.5 mmol/ L 3.5-5. 3 normal Not Available [facility] [address], [place], [address], 04/06/2023 00:35:15 04/05/19 24 04/06/2023 COMPR EHENS KRISHNA METAB OLIC PANEL chloride 108 mmol/ L 98-110 normal Not Available [facility] [address], [place], [address], 04/06/2023 00:35:15 04/05/19 24 04/06/2023 COMPR EHENS KRISHNA METAB OLIC PANEL carbon dioxide 29 mmol/ L 20-32 normal Not Available [facility] [address], [place], [address], 04/06/2023 00:35:15 04/05/19 24 04/06/2023 COMPR EHENS KRISHNA METAB OLIC PANEL calcium 9.3 mg/dL 8.6-10 .4 normal Not Available [facility] [address], [place], [address], 04/06/2023 00:35:15 04/05/19 24 04/06/2023 COMPR EHENS KRISHNA METAB OLIC PANEL protein, total 6.6 g/dL 6.1-8. 1 normal Not Available [facility] [address], [place], [address], 04/06/2023 00:35:15 04/05/19 24 04/06/2023 COMPR EHENS KRISHNA METAB OLIC PANEL albumin 4.1 g/dL 3.6-5. 1 normal Not Available [facility] [address], [place], [address], 04/06/2023 00:35:15 04/05/19 24 04/06/2023 COMPR EHENS KRISHNA METAB OLIC PANEL globulin 2.5 g/dL_ (calc ) 1.9-3. 7 normal Not Available [facility] [address], [place], [address], 04/06/2023 00:35:15 04/05/19 24 04/06/2023 COMPR EHENS KRISHNA METAB OLIC PANEL albumin/glob ulin ratio 1.6 (calc ) 1.0-2. 5 normal Not Available [facility] [address], [place], [address], 04/06/2023 00:35:15 04/05/19 24 04/06/2023 COMPR EHENS KRISHNA METAB OLIC PANEL bilirubin, total 0.3 mg/dL 0.2-1. 2 normal Not Available [facility] [address], [place], [address], 04/06/2023 00:35:15 04/05/19 24 04/06/2023 COMPR EHENS KRISHNA METAB OLIC PANEL alkaline phosphatase 66 U/L 37-153 normal Not Available [facility] [employer] [facility] [address], [place], [address], 04/06/2023 00:35:15 04/05/19 24 04/06/2023 COMPR EHENS KRISHNA METAB OLIC PANEL AST 22 U/L 10-35 normal Not Available [facility] [address], [place], [address], 04/06/2023 00:35:15 04/05/19 24 04/06/2023 COMPR EHENS KRISHNA METAB OLIC PANEL ALT 23 U/L 6-29 normal Not Available [facility] [employer] [facility] [address], [place], [address], 04/06/2023 00:35:15 04/05/19 24 04/06/2023 HEMOG LOBIN [...] resul ts. Not Available [facility] [place] [facility] [address], [place], [address], 04/06/2023 01:24:18 04/05/19 24 04/06/2023 TSH W/REF JOSÉ MANUEL TO FT4 TSH w/reflex to FT4 1.70 mIU/L 0.40-4 .50 normal Not Available [facility] [place] [facility] [address], [place], [address], 04/06/2023 01:24:18 04/05/19 24 04/05/2023 URINA LYSIS , COMPL ETE W/REF JOSÉ MANUEL TO CULTU RE color YELLOW yellow normal Not Available [facility] [place] [address], [place], [address], 04/05/2023 23:07:14 04/05/19 24 04/05/2023 URINA LYSIS , COMPL ETE W/REF JOSÉ MANUEL TO CULTU RE appearance CLEAR clear normal Not Available [facility] [place] [facility] [address], [place], [address], 04/05/2023 23:07:14 04/05/19 24 04/05/2023 URINA LYSIS , COMPL ETE W/REF JOSÉ MANUEL TO CULTU RE specific gravity 1.017 1.001- 1.035 normal Not Available [facility] [place] [facility] [address], [place], [address], 04/05/2023 23:07:14 04/05/19 24 04/05/2023 URINA LYSIS , COMPL ETE W/REF JOSÉ MANUEL TO CULTU RE pH 7.0 5.0-8. 0 normal Not Available [facility] [place] [facility] [address], [place], [address], 04/05/2023 23:07:14 04/05/19 24 04/05/2023 URINA LYSIS , COMPL ETE W/REF JOSÉ MANUEL TO CULTU RE glucose NEGATI VE negati ve normal Not Available [facility] [place] [facility] [address], [place], [address], 04/05/2023 23:07:14 04/05/19 24 04/05/2023 URINA LYSIS , COMPL ETE W/REF JOSÉM ANUEL TO CULTU RE bilirubin NEGATI VE negati ve normal Not Available [facility] [place] [facility] [address], [place], [address], 04/05/2023 23:07:14 04/05/19 24 04/05/2023 URINA LYSIS , COMPL ETE W/REF JOSÉ MANUEL TO CULTU RE ketones NEGATI VE negati ve normal Not Available [facility] [place] [facility] [address], [place], [address], 04/05/2023 23:07:14 04/05/19 24 04/05/2023 URINA LYSIS , COMPL ETE W/REF JOSÉ MANUEL TO CULTU RE occult blood NEGATI VE negati ve normal Not Available [facility] [place] [facility] [address], [place], [address], 04/05/2023 23:07:14 04/05/19 24 04/05/2023 URINA LYSIS , COMPL ETE W/REF JOSÉ MANUEL TO CULTU RE protein NEGATI VE negati ve normal Not Available [facility] [place] [facility] [address], [place], [address], 04/05/2023 23:07:14 04/05/19 24 04/05/2023 URINA LYSIS , COMPL ETE W/REF JOSÉ MANUEL TO CULTU RE nitrite NEGATI VE negati ve normal Not Available [facility] [place] [facility] [address], [place], [address], 04/05/2023 23:07:14 04/05/19 24 04/05/2023 URINA LYSIS , COMPL ETE W/REF JOSÉ MANUEL TO CULTU RE leukocyte esterase 1+ negati ve abnormal Not Available [facility] [place] [facility] [address], [place], [address], 04/05/2023 23:07:14 04/05/19 24 04/05/2023 URINA LYSIS , COMPL ETE W/REF JOSÉ MANUEL TO CULTU RE WBC 0-5 /hpf < or = 5 normal Not Available [facility] [place] [facility] [address], [place], [address], 04/05/2023 23:07:14 04/05/19 24 04/05/2023 URINA LYSIS , COMPL ETE W/REF JOSÉ MANUEL TO CULTU RE RBC 0-2 /hpf < or = 2 normal Not Available [facility] [place] [facility] [address], [place], [address], 04/05/2023 23:07:14 04/05/19 24 04/05/2023 URINA LYSIS , COMPL ETE W/REF JOSÉ MANUEL TO CULTU RE squamous epithelial cells 10-20 /hpf < or = 5 abnormal Not Available [facility] [place] [facility] [address], [place], [address], 04/05/2023 23:07:14 04/05/19 24 04/05/2023 URINA LYSIS , COMPL ETE W/REF JOSÉ MANUEL TO CULTU RE bacteria FEW /hpf none seen abnormal Not Available [facility] [place] [facility] [address], [place], [address], 04/05/2023 23:07:14 04/05/19 24 04/05/2023 URINA LYSIS , COMPL ETE W/REF JOSÉ MANUEL TO CULTU RE hyaline cast NONE SEEN /lpf none seen normal Not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
[2024-09-01 18:06] LABS: Iron 142 mcg/dL (30-160); Percent Iron Saturation 46 % (15-50); Total Iron Binding Capacity 312 mcg/dL (228-428); Unsaturated Iron Binding 170 ug/dL
[2024-09-01 18:21] LABS: Ferritin 65 ng/mL (10-250)
[2024-09-01 18:34] LABS: Folate 11.6 ng/mL (> or = 4.0); Vitamin B12 485 pg/mL (200-900)
== END 2024-09-01 14:40 | disposition home or self-care (01) ==
LOC: HO.HKASLDS 14:39
PROVIDERS: Visit Provider Nurse Practitioner Family
DX: R41.89 Other symptoms and signs involving cognitive functions and awareness (principal); F32.A Depression, unspecified; R53.83 Other fatigue; E55.9 Vitamin D deficiency, unspecified; D64.9 Anemia, unspecified
CPT/HCPCS: 36415; 82607; 82728; 82746; 83540; 84443

== ENCOUNTER 2025-02-06 13:36 | Outpatient (AMB) | payer MEDICARE, BC, SELFPAY ==
--- OUTSIDE RECORDS SUMMARY | 2024-03-09 10:00 | XMS_ITS ---
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 :1965 A ge:58 Y S ex:Female Date:03/09/2024 Address:[address], [id number] Subjective: * Chief Complaints: * 1 . 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 * Medical History: Objective: * Vitals: Assessment: Plan: * Treatment: * Images: Billing Information: * Visit Code: * Procedure Codes: * Electronic signature of Mira Maki MD on 02/06/2025 at 05:39 PM EST Sign off status: Pending * Appointment Provider: Ramandeep Maki M.D. Date: 0 03/09/2024 Generated for Douglas soriano/Nahed/Ed on: 1 04/09/2024 05:39 PM EST
[2025-02-06 13:03] VITALS: BMI 26.7
--- NOTE | 2025-02-06 13:03 | MHC.OFFVIS ---
Vital Signs 02/06/25 13:03 Height 4 ft 11 in Weight 132 lb BMI 26.7 Intake Visit Reasons: 6 mnts f/u Allergies acetaminophen (Percocet) Allergy (Unknown, Verified 08/09/24 14:33) vomiting oxycodone (Percocet) Allergy (Unknown, Verified 08/09/24 14:33) vomiting Latex Allergy (Unknown, Uncoded 07/26/23 16:02) Rash Emgality Adverse Reaction (Severe, Uncoded 07/26/23 16:02) Breathing issues PFSH Medical History Concussion syndrome Surgical History History of cataract surgery S/P lumpectomy, right breast History of cholecystectomy Family History Father Stroke Mother Hypertension Social History Alcohol intake: current Alcohol intake frequency: a few times a month Patient Tobacco Use Status: Never used Tobacco Coding
[2025-02-06 13:54] VITALS: BP 120/70; PULSE 78; O2SAT 97
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
--- OUTSIDE RECORDS SUMMARY | 2025-02-06 17:39 | XMS_ITS | Patient Health Record ---
Author Organization [facility] Address [address] [place] [address] Care Team Providers Care Database Programmer Analyst Name Role Phone Analisa Maki Unavailable [phone] Allergies Allergen (clinical drug ingredient) Drug/Non Drug Allergy documented on EMR Reaction Allergy Type Onset Date Status STEROID CREAM (uncoded) Unknown Allergy Active acetaminophen / oxycodone PERCOCET Vomiting Drug Allergy Active LATEX EXAM GLOVES Skin Rash Drug Allergy Active galcanezumab Emgality Shortness of Breath Drug Allergy Active Results Component Value Reference Range Notes [id number] IGP No Culture 30 Plus Reviewed date:04/03/2024 04:43:47 PM Interpretation: Performing Lab:[facility], [address], [place], Phone - [phone], Director - [facility] Notes/Report: Clinical Information:Vaginal/Cervical, LMP: 05/24 024 with Aygestin, Hx of C IN II, LGS Source.............Cervix;Vagina LMP / Prev Treat...[id number];[place] / BX Dates / Results....03/08/23 NIL, Neg HPV;HX O F JAYLENE II, LGSIL, +HPV No. of containers..01 ThinPrep Vial Clinical Information:Vaginal/Cervical, LMP: 05/24 024 with Aygestin, Hx of C IN II, LGS Source.............Cervix;Vagina LMP / Prev Treat...[id number];[place] / BX Dates / Results....03/08/23 NIL, Neg HPV;HX O F JAYLENE II, LGSIL, +HPV No. of containers..01 ThinPrep Vial DIAGNOSIS: NEGATIVE FOR IN TRAEPITHELIAL LESION OR MALIGNANCY. Specimen adequacy: Satisfact ory for evaluation. No endocervical component is identified. Clinician provided ICD10: Z0 1.419 Performed by: Jamel mahan, Ice Skating Instructor (ASCP) . . Note: The Pap smear is a screening test designed to aid in the detection of premalignant and malignant conditions of the uterine cervix. It is not a diagnostic procedure and should not be used as the sole means of detecting cervical cancer. Both false-positive and false-negative reports do occur. . Test Methodology: This liquid based ThinPrep(R) pap test was screened with the use of an image guided system. HPV Aptima Positive Negative This nucleic acid amplification test detects fourteen high-risk HPV types (16,18,31,33,35,39,45,51,52,56,58 ,59,66,68) without differentiation. HPV Genotype Reflex Criteria met, see HPV Genotype results. HPV Genotype 16 Negative Negative HPV Genotype 18,45 Negative Negative PDF Report Reviewed date:04/03/2024 04:39:02 PM Interpretation: Performing Lab:[facility], [address], [address], [place], Phone - [phone], Director - [facility] Notes/Report: Clinical Information:Vaginal/Cervical, LMP: 4/2 024 with Aygestin, Hx of C IN II, LGS Source.............Cervix;Vagina LMP / Prev Treat...[id number]=[id number];[place] / BX Dates / Results....03/08/23 NIL, Neg HPV;HX O F JAYLENE II, LGSIL, +HPV No. of containers..01 ThinPrep Vial Reason For Referral No Information Medications Medication SIG (Take, Route, Frequency, Duration) Notes Start Date End Date Status Zofran 03/30/2024 Active SUMAtriptan Succinate 100 MG Oral; Duration: 13 Days Active Cephalexin 750 MG Oral; Duration: 5 Days Active Magnesium Oxide -Mg Supplement 400 (240 Mg) MG Oral; Duration: 90 Days Active Adderall XR 10 MG 1 capsule in the mor marilin Orally Once a day Active Elavil 30 mg daily Active Vitamin B2 Active MiraLax 17 GM/SCOOP 1 scoop mixed with 8 ounces of fluid Orally Twice a day Active Citalopram Hydrobromide 20 MG 1 tablet Orally Once a day; Duration: 30 day(s) Active Amitriptyline HCl 10 MG 2 tablet Orally Once a day Active Caltrate 600 Active Social History Tobacco Use: Social History Observation Description Date Details (start date - stop date) Never Smoker NA - NA Sexual History Question Answer Notes Had sex in the past 12 months (vaginal, oral, or anal)? Yes with Men only Prevention strategies discussed: Other AUDIT-C (Standard) Question Answer Notes Did you have a drink contain ing alcohol in the past year? Yes How often did you have a dri nk containing alcohol in the past year? Never (0 point) How many drinks did you have on a typical day when you were drinking in the past year? 1 or 2 drinks (0 point) How often did you have six o r more drinks on one occasion in the past year? Less than monthly (1 point) Points 1 Interpretation Negative Tobacco Control (Standard) Question Answer Notes Tobacco use: Nonsmoker Problems Problem Type SNOMED Code ICD Code Onset Dates Problem Status W/U Status Risk Notes Problem Excessive and frequent menstruation (839066177) Excessive and frequent menstruation with regular cycle (N92.0) Active confirmed Problem Human papilloma virus deoxyribonucleic acid test positive, high risk on vaginal specimen (008848026395378) Cervical high risk human papillomavirus (HPV) DNA test positive (R87.810) Active confirmed Problem Sexually transmitted infectious disease (3180151) Encounter for screening for infections with a predominantly sexual mode of transmission (Z11.3) Active confirmed Problem Mild cervical dysplasia (536693781) Mild cervical dysplasia (N87.0) Active confirmed Problem Moderate cervical dysplasia (008239556) Moderate cervical dysplasia (N87.1) Active confirmed Problem Postcoital bleeding (75911182) Postcoital and contact bleeding (N93.0) Active confirmed Problem Abnormal vaginal bleeding (173793735) Other specified abnormal uterine and vaginal bleeding (N93.8) Active confirmed Problem Unspecified menopausal and perimenopausal disorder (N95.9) Active confirmed Problem History of dysplasia of cervix (664038610) Personal history of cervical dysplasia (Z87.410) Active confirmed Problem Vitamin D deficiency (39797843) Vitamin D deficiency, unspecified (E55.9) Active confirmed Problem Menopause (389386389) Menopausal and female climacteric states (N95.1) Active confirmed Problem Vulvovaginitis (disorder) (64476008) Vaginitis and vulvovaginitis (616.1) Active confirmed Other Problem Asthma (disorder) (411679790) Asthma, unspecified, unspecified status (493.90) Active confirmed Major Problem Non-infective leukorrhea (092128469) Leukorrhea, not specified as infective (623.5) Active confirmed Diag Problem Excessive and frequent menstruation (255632783) Excessive or frequent menstruation (626.2) Active confirmed Major Problem Metrorrhagia (08801754) Metrorrhagia (626.6) Active confirmed Major Problem Cervicovaginal cytology: Low grade squamous intraepithelial lesion (114915832) Papanicolaou smear of cervix with low grade squamous intraepithelial lesion (LGSIL) (795.03) Active confirmed Diag Problem Gynecological examination normal (945719926215056) Routine gynecological examination (V72.31) Active confirmed Vital Signs Temperature 97.7 degrees Fahrenheit 03/30/2024 Blood pressure diastolic 80 mm Hg 03/30/2024 Height 59 in 03/30/2024 Blood pressure systolic 112 mm Hg 03/30/2024 Weight 123 lbs 03/30/2024 BMI 24.84 kg/m2 03/30/2024 Encounters Encounter Location Date Provider Diagnosis [address] [address] 03/30/2024 Analisa Maki Encounter for gynecological examination (general) (routine) without abnormal findings Z01.419 ; Encounter for screening mammogram for malignant neoplasm of breast Z12.31 ; Menopausal and female climacteric states N95.1 ; Personal history of cervical dysplasia Z87.410 ; Personal history of other diseases of the female genital tract Z87.42 and Dense breasts, unspecified R92.30 Assessments Encounter Date Diagnosis (ICD Code) Assessment Notes Treatment Notes Treatment Clinical Notes Section Notes 03/30/2024 Encounter for gynecological examination (general) (routine) without abnormal findings (ICD-10 - Z01.419) PAP TEST WITH HPV TYPING WAS OBTAINED. 03/30/2024 Encounter for screening mammogram for malignant neoplasm of breast (ICD-10 - Z12.31) REGULAR MAMMOGRAMS AND SBE'S WERE RECOMMENDED. 03/30/2024 Menopausal and female climacteric states (ICD-10 - N95.1) DISCUSSSED MENOPAUSE AND SYMPTOMS ASSOCIATED WITH THIS. CHECK FSH, LH AND ESTRADIOL. IF ESTRADIOL IS ELEVATED, WILL GIVE HER AYGESTING AGAIN. ESTROVEN FOR MENOPAUSAL SYMPTOMS. 03/30/2024 Personal history of cervical dysplasia (ICD-10 - Z87.410) DISCUSSED PREVIOUS LEEP FOR JAYLENE 2 AND SUBSEQUENTLY NEGATIVE PAP TESTS. REPEAT PAP TEST WITH HPV TYPING WAS OBTAINED TODAY. 03/30/2024 Personal history of other diseases of the female genital tract (ICD-10 - Z87.42) DISCUSSED PREVIOUS HX OF AUB AND NEGATIVE WORK UP. 03/30/2024 Dense breasts, unspecified (ICD-10 - R92.30) DISCUSSED DENSE BREASTS ON MAMMOGRAM AND ITS IMPLICATIONS. 3D MAMMOGRAMS WERE RECOMMENDED. Plan Of Treatment Pending Test Test Name Order Date Test, Urine 06/29/2022 MAMMOGRAM, SCREENING 05/15/2014 Urinalysis 03/08/2023 Urinalysis 09/25/2021 THIN PREP,HPV,ABUNDIO IF HPV+ (>29YR)(DIAG) 07/28/2019 MM Digital Mammo Screening 08/07/2020 MM Digital Mammo Screening 09/25/2021 MM Digital Mammo Screening 05/28/2017 MM Digital Mammo Screening 03/30/2024 MM Digital Mammo Screening 03/08/2023 Vitamin D, [id number] 03/30/2024 FSH+LH+E2 03/30/2024 Next Appt Details Provider Name:Analisa rodriguez, 04/02/2025 01:00:00 PM, [address], [address], [place], [address], Insurance Providers Payer Name Payer Address Payer Phone Subscriber Number Group Number Insured Name Patient Relationship to Insured Coverage Start Date Coverage End Date MEDICARE [address] [place]IAS SILVESTRE [id number] SUSY ESCOBAR Self - patient is the insured 3 [employer] [place] [address] [place] [address] [id number] SUSY ESCOBAR Self - patient is the insured Medical (General) History Medical History History ICD Code Low grade squamous intraepit helial lesion on cytologic smear of cervix (LGSIL) R87.612 Unspecified asthma, uncomplicated J45.90 9 Excessive and frequent menstruation with regular cycle N92.0 Excessive and frequent menstruation with irregular cycle N92.1 Cervical high risk human papillomavirus (HPV) DNA test positive R87.810 Personal history of cervical dysplasia Z 87.410 Inconclusive mammogram R92.2 Moderate cervical dysplasia N87.1 Mild cervical dysplasia N87.0 Atypical squamous cells of u ndetermined significance on cytologic smear of cervix (ASC-US) R87.610 Postcoital and contact bleeding N93.0 Other specified abnormal uterine and vag inal bleeding N93.8 Mammographic heterogeneous density, bila teral breasts R92.333 Surgical History Surgery Date(Month/Year) Cholecystectomy Right Lumpectomy Essure Dialation & Curettage Hysteroscopy Colposcopy 06/22/17 Leep 07/27/17 Cataracts Right Eye Surgery 01/25/19 Hospitalization History Reason Date(Month/Year) See Surgical Hx Er for Nose Bleeds 2 Vaginal Deliveries
--- OUTSIDE RECORDS SUMMARY | 2025-02-06 17:39 | XMS_ITS | Data Portability ---
Author Organization [place] - Judah mcgrath MD PA, [employer] Address [address] [facility] [address] [place] [address] Care Team Providers Care Manager Placement Name Role Phone [facility] Ophthalmologis t ENRIQUETA RAI Freezing Machine Operator KIERRA FERRARO Neurologist NICOLAS MALDONADO Cook 3 Pastry Assessment Encounter Date Assessment Date Assessment LastModified [...] Ophthalmology for eye conditions screening -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 Free[facility] Machine Operator in [facility]. for pelvic and clinical breast examinations and screening pap smear test. Pap was completed in Feb of this year and normal. -Was seen by [employer] Operator for screening colonoscopy in 2015, all was clean. - Order fecal occult blood test- to be collected at home. -Mammogram done Nov of last year, all normal as well. Bone density is due this year in [facility]. she reports. Labs reviewed: TC *221, HDL [...] steroid/albuterol rescue inhaler for her asthma. (AIRSUPRA) [email or web address] Not available 04/12/2023 12:16:36 07/26/2024 07/26/2024 Exam [...] eye conditions screening. She reports following with [facility]. -FOLLOWS WITH Freezing Machine Operator for pelvic and clinical breast examinations and screening pap smear test. She reports following with Dr. RAI. Pap was done in Feb she reports and normal. -Goes back TO [employer] [facility] Operator for screening colonoscopy neck year. -Mammogram completed [...] Lab fecal occult blood, stool 2023 024 [facility], [address], [address], [place], [address], 4 12:17:55 Referral dermatol ogist referral 2024 025 ELIEL Jaquez MD, [address], [address], [place], [address], 5 04:02:23 ophthalm ologist referral 2023 024 [email or web address] Nitin Martinez MD, [address], [address], [place], [address], 4 12:16:50 dermatol ogist referral 2023 024 [facility] [address], [address], [place], [address], 4 05:01:55 Procedures None recorded . Surgeries None recorded . Imaging None recorded . Medication Orders Airsupra 90 mcg-80 mcg/actu ation HFA aerosol inhaler 2023 024 [id number], [address] [place], [address], 5 14:10:06 triamcin olone acetonid e 0.1 % topical cream 2023 024 [id number], [address] [place], [address], 5 14:10:00 Patient TargetsNo targets recorded. Patient InstructionsNo instructions recorded. Reason for Referral Cook 3 Pastry Referral for S creening for malignant neoplasm of skin Referring Physician: Judah Acuna, Internal Medicine, Encounter Date: 11/11/2021 Cook 3 Pastry Referral for S creening for malignant neoplasm of skin Referring Physician: Judah Acuna, Internal Medicine, Encounter Date: 04/12/2023 Lawyer Referral for Eye disorder screening Referring Physician: Judah Acuna, Internal Medicine, Encounter Date: 04/12/2023 Cook 3 Pastry Referral for E ruption Referring Physician: Judah Acuna, Internal Medicine, Encounter Date: 07/26/2024 Results Created Date Observation Date Name Description Value Unit Range Abnormal Flag Note LastModifiedBy Organization Detail LastModifiedTime 12/23/19 22 12/23/2021 LIPID PANEL WITH REFLE X TO DIREC T LDL cholesterol, total 161 mg/dL <200 normal Not Available [facility] [place] [facility] [address], [place], [address], 12/23/2021 00:25:42 12/23/19 22 12/23/2021 LIPID PANEL WITH REFLE X TO DIREC T LDL HDL cholesterol 52 mg/dL > or = 50 normal Not Available [facility] [place] [facility] [address], [place], [address], 12/23/2021 00:25:42 12/23/19 22 12/23/2021 LIPID PANEL WITH REFLE X TO DIREC T LDL triglyceride s 61 mg/dL <150 normal Not Available [facility] [place] [facility] [address], [place], [address], 12/23/2021 00:25:42 12/23/19 22 12/23/2021 LIPID PANEL [...] 2061- 2068 (http ://ed ucati on.Qu Kaylyn [employer]. com/f aq/FA Q164) Not Available [facility] [place] [facility] [address], [place], [address], 12/23/2021 00:25:42 12/23/19 22 12/23/2021 LIPID PANEL WITH REFLE X TO DIREC T LDL chol/HDLC ratio 3.1 (calc ) <5.0 normal Not Available [facility] [place] [facility] [address], [place], [address], 12/23/2021 00:25:42 12/23/19 22 12/23/2021 LIPID PANEL [...] c optio n. Not Available [facility] [address], [place], [address], 12/23/2021 00:25:42 12/23/19 22 12/23/2021 COMPR EHENS KRISHNA METAB OLIC PANEL glucose 102 mg/dL 65-99 high Fasti ng refer ence inter fabiano For someo ne witho ut known diabe dolores, a gluco se value betwe en 100 and 125 mg/dL is consi stent with predi abete s and shoul d be confi rmed with a follo w-up test. Not Available [facility] [place] [facility] [address], [place], [address], 12/23/2021 00:25:42 12/23/19 22 12/23/2021 COMPR EHENS KRISHNA METAB OLIC PANEL urea nitrogen (BUN) 15 mg/dL 7-25 normal Not Available [facility] [address], [place], [address], 12/23/2021 00:25:42 12/23/19 22 12/23/2021 COMPR EHENS KRISHNA METAB OLIC PANEL creatinine 0.84 mg/dL 0.50-1 .03 normal Not Available [facility] [place] [facility] [address], [place], [address], 12/23/2021 00:25:42 12/23/19 22 12/23/2021 COMPR EHENS [...] culat or Not Available [facility] [place] [facility] [address], [place], [address], 12/23/2021 00:25:42 12/23/19 22 12/23/2021 COMPR EHENS KRISHNA METAB OLIC PANEL BUN/creatini ne ratio NOT APPLIC ABLE (calc ) 6-22 Not Available [facility] [address], [place], [address], 12/23/2021 00:25:42 12/23/19 22 12/23/2021 COMPR EHENS KRISHNA METAB OLIC PANEL sodium 139 mmol/ L 135-14 6 normal Not Available [facility] [address], [place], [address], 12/23/2021 00:25:42 12/23/19 22 12/23/2021 COMPR EHENS KRISHNA METAB OLIC PANEL potassium 4.5 mmol/ L 3.5-5. 3 normal Not Available [facility] [address], [place], [address], 12/23/2021 00:25:42 12/23/19 22 12/23/2021 COMPR EHENS KRISHNA METAB OLIC PANEL chloride 106 mmol/ L 98-110 normal Not Available [facility] [address], [place], [address], 12/23/2021 00:25:42 12/23/19 22 12/23/2021 COMPR EHENS KRISHNA METAB OLIC PANEL carbon dioxide 26 mmol/ L 20-32 normal Not Available [facility] [address], [place], [address], 12/23/2021 00:25:42 12/23/19 22 12/23/2021 COMPR EHENS KRISHNA METAB OLIC PANEL calcium 9.1 mg/dL 8.6-10 .4 normal Not Available [facility] [address], [place], [address], 12/23/2021 00:25:42 12/23/19 22 12/23/2021 COMPR EHENS KRISHNA METAB OLIC PANEL protein, total 6.6 g/dL 6.1-8. 1 normal Not Available [facility] [address], [place], [address], 12/23/2021 00:25:42 12/23/19 22 12/23/2021 COMPR EHENS KRISHNA METAB OLIC PANEL albumin 4.0 g/dL 3.6-5. 1 normal Not Available [facility] [address], [place], [address], 12/23/2021 00:25:42 12/23/19 22 12/23/2021 COMPR EHENS KRISHNA METAB OLIC PANEL globulin 2.6 g/dL_ (calc ) 1.9-3. 7 normal Not Available [facility] [address], [place], [address], 12/23/2021 00:25:42 12/23/19 22 12/23/2021 COMPR EHENS KRISHNA METAB OLIC PANEL albumin/glob ulin ratio 1.5 (calc ) 1.0-2. 5 normal Not Available [facility] [address], [place], [address], 12/23/2021 00:25:42 12/23/19 22 12/23/2021 COMPR EHENS KRISHNA METAB OLIC PANEL bilirubin, total 0.4 mg/dL 0.2-1. 2 normal Not Available [facility] [address], [place], [address], 12/23/2021 00:25:42 12/23/19 22 12/23/2021 COMPR EHENS KRISHNA METAB OLIC PANEL alkaline phosphatase 47 U/L 37-153 normal Not Available [facility] [place] [facility] [address], [place], [address], 12/23/2021 00:25:42 12/23/19 22 12/23/2021 COMPR EHENS KRISHNA METAB OLIC PANEL AST 16 U/L 10-35 normal Not Available [facility] [place] [facility] [address], [place], [address], 12/23/2021 00:25:42 12/23/19 22 12/23/2021 COMPR EHENS KRISHNA METAB OLIC PANEL ALT 10 U/L 6-29 normal Not Available [facility] [place] [facility] [address], [place], [address], 12/23/2021 00:25:42 12/23/19 22 12/23/2021 HEMOG LOBIN [...] fic patie nt popul ation s. Stand [facility] in Diabe dolores(A DA). Not Available [facility] [place] [facility] [address], [place], [address], 12/23/2021 02:05:14 12/23/19 22 12/23/2021 TSH W/REF JOSÉ MANUEL TO FT4 TSH w/reflex to FT4 2.14 mIU/L 0.40-4 .50 normal Not Available [facility] [place] [facility] [address], [place], [address], 12/23/2021 00:57:34 12/23/1912/23/2021 CBC (INCL UDES DIFF/ PLT) white blood cell count 3.9 thous and/u L 3.8-10 .8 normal Not Available [facility] [place] [facility] [address], [place], [address], 12/23/2021 00:25:44 12/23/19 22 12/23/2021 CBC (INCL UDES DIFF/ PLT) red blood cell count 4.00 nuvia on/uL 3.80-5 .10 normal Not Available [facility] [place] [facility] [address], [place], [address], 12/23/2021 00:25:44 12/23/19 22 12/23/2021 CBC (INCL UDES DIFF/ PLT) hemoglobin 12.9 g/dL 11.7-1 5.5 normal Not Available [facility] [place] [facility] [address], [place], [address], 12/23/2021 00:25:44 12/23/19 22 12/23/2021 CBC (INCL UDES DIFF/ PLT) hematocrit 37.7 % 35.0-4 5.0 normal Not Available [facility] [place] [facility] [address], [place], [address], 12/23/2021 00:25:44 10/31/12/23/2021 CBC (INCL UDES DIFF/ PLT) MCV 94.3 fL 80.0-1 00.0 normal Not Available [facility] [address], [place], [address], 12/23/2021 00:25:44 12/23/19 22 12/23/2021 CBC (INCL UDES DIFF/ PLT) MCH 32.3 pg 27.0-3 3.0 normal Not Available [facility] [address], [place], [address], 12/23/2021 00:25:44 12/23/19 22 12/23/2021 CBC (INCL UDES DIFF/ PLT) MCHC 34.2 g/dL 32.0-3 6.0 normal Not Available [facility] [address], [place], [address], 12/23/2021 00:25:44 12/23/19 22 12/23/2021 CBC (INCL UDES DIFF/ PLT) RDW 12.4 % 11.0-1 5.0 normal Not Available [facility] [address], [place], [address], 12/23/2021 00:25:44 12/23/19 22 12/23/2021 CBC (INCL UDES DIFF/ PLT) platelet count 349 thous and/u L 140-40 0 normal Not Available [facility] [address], [place], [address], 12/23/2021 00:25:44 12/23/19 22 12/23/2021 CBC (INCL UDES DIFF/ PLT) MPV 8.9 fL 7.5-12 .5 normal Not Available [facility] [address], [place], [address], 12/23/2021 00:25:44 12/23/19 22 12/23/2021 CBC (INCL UDES DIFF/ PLT) absolute neutrophils 2126 cells /uL 1500-7 800 normal Not Available [facility] [address], [place], [address], 12/23/2021 00:25:44 12/23/19 22 12/23/2021 CBC (INCL UDES DIFF/ PLT) absolute lymphocytes 1346 cells /uL 850-39 00 normal Not Available [facility] [place] [facility] [address], [place], [address], 12/23/2021 00:25:44 12/23/19 22 12/23/2021 CBC (INCL UDES DIFF/ PLT) absolute monocytes 281 cells /uL 200-95 0 normal Not Available [facility] [address], [place], [address], 12/23/2021 00:25:44 12/23/19 22 12/23/2021 CBC (INCL UDES DIFF/ PLT) absolute eosinophils 109 cells /uL 15-500 normal Not Available [facility] [address], [place], [address], 12/23/2021 00:25:44 12/23/19 22 12/23/2021 CBC (INCL UDES DIFF/ PLT) absolute basophils 39 cells /uL 0-200 normal Not Available [facility] [address], [place], [address], 12/23/2021 00:25:44 12/23/19 22 12/23/2021 CBC (INCL UDES DIFF/ PLT) neutrophils 54.5 % normal Not Available [facility] [address], [place], [address], 12/23/2021 00:25:44 12/23/19 22 12/23/2021 CBC (INCL UDES DIFF/ PLT) lymphocytes 34.5 % normal Not Available [facility] [address], [place], [address], 12/23/2021 00:25:44 12/23/19 22 12/23/2021 CBC (INCL UDES DIFF/ PLT) monocytes 7.2 % normal Not Available [facility] [address], [place], [address], 12/23/2021 00:25:44 12/23/19 22 12/23/2021 CBC (INCL UDES DIFF/ PLT) eosinophils 2.8 % normal Not Available [facility] [place] [facility] [address], [place], [address], 12/23/2021 00:25:44 12/23/19 22 12/23/2021 CBC (INCL UDES DIFF/ PLT) basophils 1.0 % normal Not Available [facility] [address], [place], [address], 12/23/2021 00:25:44 12/23/19 22 12/23/2021 URINA LYSIS , COMPL ETE W/REF JOSÉ MANUEL TO CULTU RE color YELLOW yellow normal Not Available [facility] [address], [place], [address], 12/23/2021 00:25:44 12/23/19 22 12/23/2021 URINA LYSIS , COMPL ETE W/REF JOSÉ MANUEL TO CULTU RE appearance CLEAR clear normal Not Available [facility] [address], [place], [address], 12/23/2021 00:25:44 12/23/19 22 12/23/2021 URINA LYSIS , COMPL ETE W/REF JOSÉ MANUEL TO CULTU RE specific gravity 1.011 1.001- 1.035 normal Not Available [facility] [address], [place], [address], 12/23/2021 00:25:44 12/23/19 22 12/23/2021 URINA LYSIS , COMPL ETE W/REF JOSÉ MANUEL TO CULTU RE pH 7.5 5.0-8. 0 normal Not Available [facility] [place] [facility] [address], [place], [address], 12/23/2021 00:25:44 12/23/19 22 12/23/2021 URINA LYSIS , COMPL ETE W/REF JOSÉ MANUEL TO CULTU RE glucose NEGATI VE negati ve normal Not Available [facility] [place] [facility] [address], [place], [address], 12/23/2021 00:25:44 12/23/1912/23/2021 URINA LYSIS , COMPL ETE W/REF JOSÉ MANUEL TO CULTU RE bilirubin NEGATI VE negati ve normal Not Available [facility] [place] [facility] [address], [place], [address], 12/23/2021 00:25:44 12/23/19 22 12/23/2021 URINA LYSIS , COMPL ETE W/REF JOSÉ MANUEL TO CULTU RE ketones NEGATI VE negati ve normal Not Available [facility] [place] [facility] [address], [place], [address], 12/23/2021 00:25:44 12/23/19 22 12/23/2021 URINA LYSIS , COMPL ETE W/REF JOSÉ MANUEL TO CULTU RE occult blood NEGATI VE negati ve normal Not Available [facility] [place] [facility] [address], [place], [address], 12/23/2021 00:25:44 12/23/19 22 12/23/2021 URINA LYSIS , COMPL ETE W/REF JOSÉ MANUEL TO CULTU RE protein NEGATI VE negati ve normal Not Available [facility] [place] [facility] [address], [place], [address], 12/23/2021 00:25:44 12/23/19 22 12/23/2021 URINA LYSIS , COMPL ETE W/REF JOSÉ MANUEL TO CULTU RE nitrite NEGATI VE negati ve normal Not Available [facility] [place] [facility] [address], [place], [address], 12/23/2021 00:25:44 12/23/19 22 12/23/2021 URINA LYSIS , COMPL ETE W/REF JOSÉ MANUEL TO CULTU RE leukocyte esterase NEGATI VE negati ve normal Not Available [facility] [place] [facility] [address], [place], [address], 12/23/2021 00:25:44 12/23/19 22 12/23/2021 URINA LYSIS , COMPL ETE W/REF JOSÉ MANUEL TO CULTU RE WBC NONE SEEN /hpf < or = 5 normal Not Available [facility] [place] [facility] [address], [place], [address], 12/23/2021 00:25:44 12/23/19 22 12/23/2021 URINA LYSIS , COMPL ETE W/REF JOSÉ MANUEL TO CULTU RE RBC NONE SEEN /hpf < or = 2 normal Not Available [facility] [place] [facility] [address], [place], [address], 12/23/2021 00:25:44 12/23/19 22 12/23/2021 URINA LYSIS , COMPL ETE W/REF JOSÉ MANUEL TO CULTU RE squamous epithelial cells NONE SEEN /hpf < or = 5 normal Not Available [facility] [place] [facility] [address], [place], [address], 12/23/2021 00:25:44 12/23/19 22 12/23/2021 URINA LYSIS , COMPL ETE W/REF JOSÉ MANUEL TO CULTU RE bacteria NONE SEEN /hpf none seen normal Not Available [facility] [place] [facility] [address], [place], [address], 12/23/2021 00:25:44 12/23/19 22 12/23/2021 URINA LYSIS , COMPL ETE W/REF JOSÉ MANUEL TO CULTU RE hyaline cast NONE SEEN /lpf none seen normal Not Available [facility] [place] [facility] [address], [place], [address], 12/23/2021 00:25:44 12/23/1912/23/2021 URINA LYSIS , COMPL ETE W/REF JOSÉ MANUEL TO CULTU RE note This urine was francesco zed for the prese nce of WBC, RBC, bacte katie, casts , and other forme d eleme nts. Only those eleme nts seen were repor lazaro. Not Available [facility] [place] [facility] [address], [place], [address], 12/23/2021 00:25:44 12/23/1912/23/2021 REFLE XIVE URINE CULTU RE reflexive urine culture NO CULTU RE INDIC ATED Not Available [facility] [place] [facility] [address], [place], [address], 12/23/2021 00:25:44 04/05/19 24 04/06/2023 LIPID PANEL WITH REFLE X TO DIREC T LDL cholesterol, total 221 mg/dL <200 high Not Available [facility] [place] [facility] [address], [place], [address], 04/06/2023 00:35:14 04/05/19 24 04/06/2023 LIPID PANEL WITH REFLE X TO DIREC T LDL HDL cholesterol 64 mg/dL > or = 50 normal Not Available [facility] [place] [facility] [address], [place], [address], 04/06/2023 00:35:14 04/05/19 24 04/06/2023 LIPID PANEL WITH REFLE X TO DIREC T LDL triglyceride s 96 mg/dL <150 normal Not Available [facility] [place] [facility] [address], [place], [address], 04/06/2023 00:35:14 04/05/19 24 04/06/2023 LIPID PANEL [...] 310(1 9): 2061- 2068 (http ://ed ucati on.[employer]. [employer]/f aq/FA Q164) Not Available [facility] [place] [facility] [address], [place], [address], 04/06/2023 00:35:14 04/05/19 24 04/06/2023 LIPID PANEL WITH REFLE X TO DIREC T LDL chol/HDLC ratio 3.5 (calc ) <5.0 normal Not Available [facility] [place] [facility] [address], [place], [address], 04/06/2023 00:35:14 04/05/19 24 04/06/2023 LIPID PANEL [...] optio n. Not Available [facility] [place] [facility] [address], [place], [address], 04/06/2023 00:35:14 04/05/19 24 04/06/2023 COMPR EHENS KRISHNA METAB OLIC PANEL glucose 100 mg/dL 65-99 high Fasti ng refer ence inter fabiano For someo ne witho ut known diabe dolores, a gluco se value betwe en 100 and 125 mg/dL is consi stent with predi abete s and shoul d be confi rmed with a follo w-up test. Not Available [facility] [place] [facility] [address], [place], [address], 04/06/2023 00:35:15 04/05/19 24 04/06/2023 COMPR EHENS KRISHNA METAB OLIC PANEL urea nitrogen (BUN) 18 mg/dL 7-25 normal Not Available [facility] [place] [facility] [address], [place], [address], 04/06/2023 00:35:15 04/05/19 24 04/06/2023 COMPR EHENS KRISHNA METAB OLIC PANEL creatinine 0.74 mg/dL 0.50-1 .03 normal Not Available [facility] [place] [facility] [address], [place], [address], 04/06/2023 00:35:15 04/05/19 24 04/06/2023 COMPR EHENS KRISHNA METAB OLIC PANEL eGFR 94 mL/mi n/1.7 3m2 > or = 60 normal Not Available [facility] [place] [facility] [address], [place], [address], 04/06/2023 00:35:15 04/05/19 24 04/06/2023 COMPR EHENS KRISHNA METAB OLIC PANEL BUN/creatini ne ratio SEE NOTE: (calc ) 6-22 Not Repor lazaro: BUN and Creat inine are withi n refer ence range . Not Available [facility] [place] [facility] [address], [place], [address], 04/06/2023 00:35:15 04/05/19 24 04/06/2023 COMPR EHENS KRISHNA METAB OLIC PANEL sodium 140 mmol/ L 135-14 6 normal Not Available [facility] [place] [facility] [address], [place], [address], 04/06/2023 00:35:15 04/05/19 24 04/06/2023 COMPR EHENS KRISHNA METAB OLIC PANEL potassium 4.5 mmol/ L 3.5-5. 3 normal Not Available [facility] [address], [place], [address], 04/06/2023 00:35:15 04/05/19 24 04/06/2023 COMPR EHENS KRISHNA METAB OLIC PANEL chloride 108 mmol/ L 98-110 normal Not Available [facility] [address], [place], [address], 04/06/2023 00:35:15 04/05/19 24 04/06/2023 COMPR EHENS KRISHNA METAB OLIC PANEL carbon dioxide 29 mmol/ L 20-32 normal Not Available [facility] [address], [place], [address], 04/06/2023 00:35:15 04/05/19 24 04/06/2023 COMPR EHENS KRISHNA METAB OLIC PANEL calcium 9.3 mg/dL 8.6-10 .4 normal Not Available [facility] [address], [place], [address], 04/06/2023 00:35:15 04/05/19 24 04/06/2023 COMPR EHENS KRISHNA METAB OLIC PANEL protein, total 6.6 g/dL 6.1-8. 1 normal Not Available [facility] [address], [place], [address], 04/06/2023 00:35:15 04/05/19 24 04/06/2023 COMPR EHENS KRISHNA METAB OLIC PANEL albumin 4.1 g/dL 3.6-5. 1 normal Not Available [facility] [address], [place], [address], 04/06/2023 00:35:15 04/05/19 24 04/06/2023 COMPR EHENS KRISHNA METAB OLIC PANEL globulin 2.5 g/dL_ (calc ) 1.9-3. 7 normal Not Available [facility] [address], [place], [address], 04/06/2023 00:35:15 04/05/19 24 04/06/2023 COMPR EHENS KRISHNA METAB OLIC PANEL albumin/glob ulin ratio 1.6 (calc ) 1.0-2. 5 normal Not Available [facility] [address], [place], [address], 04/06/2023 00:35:15 04/05/19 24 04/06/2023 COMPR EHENS KRISHNA METAB OLIC PANEL bilirubin, total 0.3 mg/dL 0.2-1. 2 normal Not Available [facility] [address], [place], [address], 04/06/2023 00:35:15 04/05/19 24 04/06/2023 COMPR EHENS KRISHNA METAB OLIC PANEL alkaline phosphatase 66 U/L 37-153 normal Not Available [facility] [employer] [facility] [address], [place], [address], 04/06/2023 00:35:15 04/05/19 24 04/06/2023 COMPR EHENS KRISHNA METAB OLIC PANEL AST 22 U/L 10-35 normal Not Available [facility] [address], [place], [address], 04/06/2023 00:35:15 04/05/19 24 04/06/2023 COMPR EHENS KRISHNA METAB OLIC PANEL ALT 23 U/L 6-29 normal Not Available [facility] [employer] [facility] [address], [place], [address], 04/06/2023 00:35:15 04/05/19 24 04/06/2023 HEMOG LOBIN [...] resul ts. Not Available [facility] [place] [facility] [address], [place], [address], 04/06/2023 01:24:18 04/05/19 24 04/06/2023 TSH W/REF JOSÉ MANUEL TO FT4 TSH w/reflex to FT4 1.70 mIU/L 0.40-4 .50 normal Not Available [facility] [place] [facility] [address], [place], [address], 04/06/2023 01:24:18 04/05/19 24 04/05/2023 URINA LYSIS , COMPL ETE W/REF JOSÉ MANUEL TO CULTU RE color YELLOW yellow normal Not Available [facility] [place] [facility] [address], [place], [address], 04/05/2023 23:07:14 04/05/19 24 04/05/2023 URINA LYSIS , COMPL ETE W/REF JOSÉ MANUEL TO CULTU RE appearance CLEAR clear normal Not Available [facility] [place] [facility] [address], [place], [address], 04/05/2023 23:07:14 04/05/19 24 04/05/2023 URINA LYSIS , COMPL ETE W/REF JOSÉ MANUEL TO CULTU RE specific gravity 1.017 1.001- 1.035 normal Not Available [facility] [place] [facility] [address], [place], [address], 04/05/2023 23:07:14 04/05/19 24 04/05/2023 URINA LYSIS , COMPL ETE W/REF JOSÉ MANUEL TO CULTU RE pH 7.0 5.0-8. 0 normal Not Available [facility] [place] [facility] [address], [place], [address], 04/05/2023 23:07:14 04/05/19 24 04/05/2023 URINA LYSIS , COMPL ETE W/REF JOSÉ MANUEL TO CULTU RE glucose NEGATI VE negati ve normal Not Available [facility] [place] [facility] [address], [place], [address], 04/05/2023 23:07:14 04/05/19 24 04/05/2023 URINA LYSIS , COMPL ETE W/REF JOSÉ MANUEL TO CULTU RE bilirubin NEGATI VE negati ve normal Not Available [facility] [place] [facility] [address], [place], [address], 04/05/2023 23:07:14 04/05/19 24 04/05/2023 URINA LYSIS , COMPL ETE W/REF JOSÉ MANUEL TO CULTU RE ketones NEGATI VE negati ve normal Not Available [facility] [place] [facility] [address], [place], [address], 04/05/2023 23:07:14 04/05/19 24 04/05/2023 URINA LYSIS , COMPL ETE W/REF JOSÉ MANUEL TO CULTU RE occult blood NEGATI VE negati ve normal Not Available [facility] [place] [facility] [address], [place], [address], 04/05/2023 23:07:14 04/05/19 24 04/05/2023 URINA LYSIS , COMPL ETE W/REF JOSÉ MANUEL TO CULTU RE protein NEGATI VE negati ve normal Not Available [facility] [place] [facility] [address], [place], [address], 04/05/2023 23:07:14 04/05/19 24 04/05/2023 URINA LYSIS , COMPL ETE W/REF JOSÉ MANUEL TO CULTU RE nitrite NEGATI VE negati ve normal Not Available [facility] [place] [facility] [address], [place], [address], 04/05/2023 23:07:14 04/05/19 24 04/05/2023 URINA LYSIS , COMPL ETE W/REF JOSÉ MANUEL TO CULTU RE leukocyte esterase 1+ negati ve abnormal Not Available [facility] [place] [facility] [address], [place], [address], 04/05/2023 23:07:14 04/05/19 24 04/05/2023 URINA LYSIS , COMPL ETE W/REF JOSÉ MANUEL TO CULTU RE WBC 0-5 /hpf < or = 5 normal Not Available [facility] [place] [facility] [address], [place], [address], 04/05/2023 23:07:14 04/05/19 24 04/05/2023 URINA LYSIS , COMPL ETE W/REF JOSÉ MANUEL TO CULTU RE RBC 0-2 /hpf < or = 2 normal Not Available [facility] [place] [facility] [address], [place], [address], 04/05/2023 23:07:14 04/05/19 24 04/05/2023 URINA LYSIS , COMPL ETE W/REF JOSÉ MANUEL TO CULTU RE squamous epithelial cells 10-20 /hpf < or = 5 abnormal Not Available [facility] [place] [facility] [address], [place], [address], 04/05/2023 23:07:14 04/05/19 24 04/05/2023 URINA LYSIS , COMPL ETE W/REF JOSÉ MANUEL TO CULTU RE bacteria FEW /hpf none seen abnormal Not Available [facility] [place] [facility] [address], [place], [address], 04/05/2023 23:07:14 04/05/19 24 04/05/2023 URINA LYSIS , COMPL ETE W/REF JOSÉ MANUEL TO CULTU RE hyaline cast NONE SEEN /lpf none seen normal Not Available [facility] [place] [facility] [address], [place], [address], 04/05/2023 23:07:14 04/05/19 24 04/05/2023 URINA LYSIS , COMPL ETE W/REF JOSÉ MANUEL TO CULTU RE note This urine was francesco zed for the prese nce of WBC, RBC, bacte katie, casts , and other forme d eleme nts. Only those eleme nts seen were repor lazaro. Not Available [facility] [place] [facility] [address], [place], [address], 04/05/2023 23:07:14 04/05/19 24 04/05/2023 URINA LYSIS , COMPL ETE W/REF JOSÉ MANUEL TO CULTU RE reflexive urine culture CULTU RE INDIC ATED - RESUL TS TO FOLLO W Not Available [facility] [place]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
== END 2025-02-06 14:52 | disposition home or self-care (01) ==
LOC: HO.HSMS 13:37
PROVIDERS: Visit Provider Nurse Practitioner Family
DX: E55.9 Vitamin D deficiency, unspecified (principal); F07.81 Postconcussional syndrome; R41.89 Other symptoms and signs involving cognitive functions and awareness; G43.009 Migraine without aura, not intractable, without status migrainosus; G47.19 Other hypersomnia; F39 Unspecified mood [affective] disorder
CPT/HCPCS: 99214

== ENCOUNTER → 2025-02-06 13:36 | Outpatient (BNVA) | payer MEDICARE, BC, SELFPAY | PROVIDERS: Visit Provider Nurse Practitioner Family | DX: G43.009 Migraine without aura, not intractable, without status migrainosus (principal); F07.81 Postconcussional syndrome; E55.9 Vitamin D deficiency, unspecified; G47.19 Other hypersomnia; F39 Unspecified mood [affective] disorder; R41.89 Other symptoms and signs involving cognitive functions and awareness | CPT/HCPCS: 99212 ==